=== PATIENT | female | born 1940 | race Caucasian/White ===

== ENCOUNTER 2020-08-28 09:17 | Outpatient (REF) | payer MEDICARE, SELFPAY ==
[2020-08-28 11:13] LABS: Estimated Average Glucose 117 mg/dL; Hemoglobin A1c % 5.7 %
[2020-08-28 11:54] LABS: Alanine Aminotransferase 25 U/L (0-31); Albumin Level 4.5 g/dL (3.5-5.0); Alkaline Phosphatase 81 U/L (39-117); Anion Gap 13 (12-20); Aspartate Amino Transferase 30 U/L (5-31); Bilirubin Total 1.3 mg/dL (0.0-1.0); Blood Urea Nitrogen 13 mg/dL (9-16); Calcium 9.7 mg/dL (8.4-10.2); Carbon Dioxide 30 mmol/L (22-29); Chloride 101 mmol/L (96-108); Cholesterol 182 mg/dL; Estimated Glomerular Filt Rate > 60; Glucose Fasting 115 mg/dL (60-99); HDL Cholesterol 60 mg/dL; LDL Cholesterol Calculated 95 mg/dl; Sodium 139 mmol/L (135-145); Total Protein 6.8 g/dL (6.5-8.0); Triglycerides 137 mg/dL
[2020-08-28 12:18] LABS: Free T4 (Free Thyroxine) 1.07 ng/dL (0.71-1.85); Thyroid Stimulating Hormone 4.01 mIU/mL (0.32-4.0)
== END 2020-08-28 09:18 | disposition home or self-care (01) ==
LOC: HO.MANLR 09:17
PROVIDERS: PCP Internal Medicine; Visit Provider Internal Medicine
DX: R73.01 Impaired fasting glucose (principal); E78.00 Pure hypercholesterolemia, unspecified; E03.9 Hypothyroidism, unspecified; I10 Essential (primary) hypertension
CPT/HCPCS: 80053; 80061; 83036; 84439; 84443

== ENCOUNTER 2020-11-26 09:36 | Outpatient (REF) | payer MEDICARE, SELFPAY ==
[2020-11-26 11:43] LABS: Estimated Average Glucose 117 mg/dL; Hemoglobin A1c % 5.7 %
== END 2020-11-26 09:37 | disposition home or self-care (01) ==
LOC: HO.MANLR 09:36
PROVIDERS: PCP Internal Medicine; Visit Provider Internal Medicine
DX: E03.9 Hypothyroidism, unspecified (principal); I10 Essential (primary) hypertension; R73.01 Impaired fasting glucose; E78.00 Pure hypercholesterolemia, unspecified
CPT/HCPCS: 36415; 83036

== ENCOUNTER 2021-02-04 14:29 | Outpatient (REF) | payer MEDICARE, SELFPAY ==
[2021-02-04 17:56] LABS: Glucose Urine UA NEG (NEG); Leukocyte Esterase Urine NEG (NEG); Nitrite Urine NEG (NEG); PH 6.5 (5.0-8.0); Specific Gravity - Urine <= 1.005 (1.005-1.025); Urine Blood NEG (NEG); Urine Ketones NEG (NEG); Urine Protein NEG (NEG-TRACE)
[2021-02-04 18:02] LABS: Color Urine YELLOW
[2021-02-04 18:03] LABS: Appearance Urine CLEAR
[2021-02-04 18:27] LABS: Alanine Aminotransferase 19 U/L (0-31); Albumin Level 4.3 g/dL (3.5-5.0); Alkaline Phosphatase 89 U/L (39-117); Anion Gap 13 (12-20); Aspartate Amino Transferase 27 U/L (5-31); Blood Urea Nitrogen 16 mg/dL (9-16); Calcium 9.7 mg/dL (8.4-10.2); Carbon Dioxide 31 mmol/L (22-29); Chloride 103 mmol/L (96-108); Estimated Glomerular Filt Rate > 60; Glucose Random 141 mg/dL (60-115); Potassium 4.7 mmol/L (3.3-5.1); Sodium 142 mmol/L (135-145); Total Protein 6.6 g/dL (6.5-8.0)
== END 2021-02-04 14:30 | disposition home or self-care (01) ==
LOC: HO.MANLDS 14:29
PROVIDERS: PCP Internal Medicine; Visit Provider Physician Assistant
DX: R31.0 Gross hematuria (principal); R30.9 Painful micturition, unspecified
CPT/HCPCS: 36415; 80053; 81003; 87086

== ENCOUNTER 2021-03-03 08:46 | Outpatient (REF) | payer MEDICARE, SELFPAY ==
[2021-03-03 11:34] LABS: Estimated Average Glucose 114 mg/dL; Hemoglobin A1c % 5.6 %
[2021-03-03 12:02] LABS: Alanine Aminotransferase 20 U/L (0-31); Albumin Level 4.4 g/dL (3.5-5.0); Alkaline Phosphatase 83 U/L (39-117); Anion Gap 15 (12-20); Aspartate Amino Transferase 25 U/L (5-31); Bilirubin Total 1.8 mg/dL (0.0-1.0); Blood Urea Nitrogen 18 mg/dL (9-16); Calcium 9.3 mg/dL (8.4-10.2); Carbon Dioxide 26 mmol/L (22-29); Chloride 103 mmol/L (96-108); Cholesterol 176 mg/dL; Estimated Glomerular Filt Rate > 60; Glucose Fasting 111 mg/dL (60-99); HDL Cholesterol 63 mg/dL; LDL Cholesterol Calculated 86 mg/dl; Potassium 5.1 mmol/L (3.3-5.1); Sodium 139 mmol/L (135-145); Total Protein 6.7 g/dL (6.5-8.0); Triglycerides 136 mg/dL
[2021-03-03 12:08] LABS: Free T4 (Free Thyroxine) 0.88 ng/dL (0.71-1.85); Thyroid Stimulating Hormone 3.53 uIU/mL (0.32-4.0)
== END 2021-03-03 08:47 | disposition home or self-care (01) ==
LOC: HO.MANLDS 08:46
PROVIDERS: PCP Internal Medicine; Visit Provider Internal Medicine
DX: R73.01 Impaired fasting glucose (principal); E03.9 Hypothyroidism, unspecified; E78.00 Pure hypercholesterolemia, unspecified; I10 Essential (primary) hypertension
CPT/HCPCS: 36415; 80053; 80061; 83036; 84439; 84443

== ENCOUNTER 2021-06-03 11:07 | Outpatient (REF) | payer MEDICARE, SELFPAY ==
[2021-06-03 13:17] LABS: Estimated Average Glucose 117 mg/dL; Hemoglobin A1c % 5.7 %
== END 2021-06-03 11:08 | disposition home or self-care (01) ==
LOC: HO.MANLDS 11:07
PROVIDERS: PCP Internal Medicine; Visit Provider Internal Medicine
DX: R73.01 Impaired fasting glucose (principal); E03.9 Hypothyroidism, unspecified; E78.00 Pure hypercholesterolemia, unspecified; I10 Essential (primary) hypertension
CPT/HCPCS: 36415; 83036

== ENCOUNTER 2021-06-12 10:52 | Outpatient (REF) | payer MEDICARE, SELFPAY ==
--- NOTE | ~2021-06-12 | MM_ITS ---
EXAMINATION: MM SCREENING DIGITAL BREAST TOMOSYNTHESIS, BILATERAL CLINICAL INFORMATION: Screening. Asymptomatic. The lifetime risk of breast cancer based on the Tyrer-Cuzick Model is 3%. COMPARISON: Mammography: 06/06/2020, 03/17/2019, 03/10/2018 TECHNIQUE: Digital breast tomosynthesis is performed in both the craniocaudal and mediolateral oblique views along with computer-aided detection (CAD). Synthesized 2D images are generated from the tomosynthesis. FINDINGS: There are scattered areas of fibroglandular density (ACR BI-RADS breast composition Category b). There are no significant masses, abnormal calcifications, or other abnormalities. Parenchymal pattern is similar to prior studies. The skin contours are smooth. No significant changes. MM/MM tomosynthesis screening BI IMPRESSION: No mammographic evidence of malignancy. ASSESSMENT: BI-RADS 1: Negative RECOMMENDATION: Routine annual mammography screening. This patient's information was entered into a reminder system with a target due date for their next mammogram.
== END 2021-06-12 10:53 | disposition home or self-care (01) ==
LOC: HO.MAMMO 10:52
PROVIDERS: Visit Provider Internal Medicine
DX: Z12.31 Encounter for screening mammogram for malignant neoplasm of breast (principal)
CPT/HCPCS: 77063; 77067

== ENCOUNTER 2021-09-08 09:10 | Outpatient (REF) | payer MEDICARE, SELFPAY ==
[2021-09-08 11:51] LABS: Estimated Average Glucose 117 mg/dL; Hemoglobin A1c % 5.7 %
[2021-09-08 12:05] LABS: Alanine Aminotransferase 27 U/L (0-31); Albumin Level 4.2 g/dL (3.5-5.0); Alkaline Phosphatase 87 U/L (39-117); Anion Gap 12 (12-20); Aspartate Amino Transferase 22 U/L (5-31); Blood Urea Nitrogen 15 mg/dL (9-16); Calcium 9.4 mg/dL (8.4-10.2); Carbon Dioxide 28 mmol/L (22-29); Chloride 102 mmol/L (96-108); Cholesterol 179 mg/dL; Estimated Glomerular Filt Rate > 60; Glucose Fasting 100 mg/dL (60-99); HDL Cholesterol 58 mg/dL; LDL Cholesterol Calculated 103 mg/dl; Potassium 4.4 mmol/L (3.3-5.1); Sodium 138 mmol/L (135-145); Total Protein 6.6 g/dL (6.5-8.0); Triglycerides 93 mg/dL
[2021-09-08 12:18] LABS: Thyroid Stimulating Hormone 2.83 uIU/mL (0.32-4.0)
== END 2021-09-08 09:11 | disposition home or self-care (01) ==
LOC: HO.MANLDS 09:10
PROVIDERS: PCP Internal Medicine; Visit Provider Internal Medicine
DX: R73.01 Impaired fasting glucose (principal); E03.9 Hypothyroidism, unspecified; E78.00 Pure hypercholesterolemia, unspecified; I10 Essential (primary) hypertension
CPT/HCPCS: 36415; 80053; 80061; 83036; 84439; 84443

== ENCOUNTER 2021-12-01 11:37 | Outpatient (REF) | payer MEDICARE, SELFPAY ==
[2021-12-01 13:55] LABS: Estimated Average Glucose 117 mg/dL; Hemoglobin A1c % 5.7 %
== END 2021-12-01 11:38 | disposition home or self-care (01) ==
LOC: HO.MANLDS 11:37
PROVIDERS: PCP Internal Medicine; Visit Provider Internal Medicine
DX: R73.01 Impaired fasting glucose (principal); E03.9 Hypothyroidism, unspecified; E78.00 Pure hypercholesterolemia, unspecified; I10 Essential (primary) hypertension
CPT/HCPCS: 36415; 83036

== ENCOUNTER 2022-01-09 13:36 | Outpatient (REF) | payer MEDICARE, SELFPAY | END 2022-01-09 13:37 | disposition home or self-care (01) | LOC: HO.MANLDS 13:36 | PROVIDERS: PCP Physician Assistant; Visit Provider Physician Assistant | DX: R30.9 Painful micturition, unspecified (principal) | CPT/HCPCS: 87086 ==

== ENCOUNTER 2022-01-23 14:52 | Outpatient (REF) | payer MEDICARE, SELFPAY | END 2022-01-23 14:53 | disposition home or self-care (01) | LOC: HO.LAB 14:52 | PROVIDERS: PCP Internal Medicine | DX: R31.9 Hematuria, unspecified (principal); N39.0 Urinary tract infection, site not specified | CPT/HCPCS: 87086; 99202 ==

== ENCOUNTER 2022-01-26 11:59 | Outpatient (REF) | payer MEDICARE, SELFPAY ==
[2022-01-27 10:14] LABS: Urine Cytology See Pathology rpt
== END 2022-01-26 12:00 | disposition home or self-care (01) ==
LOC: HO.LAB 11:59
DX: R31.9 Hematuria, unspecified (principal)
CPT/HCPCS: 88112

== ENCOUNTER 2022-03-11 09:23 | Outpatient (REF) | payer MEDICARE, SELFPAY ==
[2022-03-11 11:52] LABS: Alanine Aminotransferase 38 U/L (0-31); Albumin Level 4.3 g/dL (3.5-5.0); Alkaline Phosphatase 78 U/L (39-117); Anion Gap 13 (12-20); Aspartate Amino Transferase 44 U/L (5-31); Bilirubin Total 0.9 mg/dL (0.0-1.0); Blood Urea Nitrogen 11 mg/dL (9-16); Calcium 9.9 mg/dL (8.4-10.2); Carbon Dioxide 29 mmol/L (22-29); Chloride 103 mmol/L (96-108); Cholesterol 171 mg/dL; Estimated Glomerular Filt Rate > 60; Glucose Fasting 106 mg/dL (60-99); HDL Cholesterol 61 mg/dL; LDL Cholesterol Calculated 94 mg/dl; Potassium 4.6 mmol/L (3.3-5.1); Sodium 140 mmol/L (135-145); Total Protein 6.7 g/dL (6.5-8.0); Triglycerides 82 mg/dL
[2022-03-11 11:54] LABS: Estimated Average Glucose 117 mg/dL; Hemoglobin A1c % 5.7 %
[2022-03-11 12:14] LABS: Free T4 (Free Thyroxine) 1.07 ng/dL (0.71-1.85); Thyroid Stimulating Hormone 1.92 uIU/mL (0.32-4.0)
== END 2022-03-11 09:24 | disposition home or self-care (01) ==
LOC: HO.MANLDS 09:23
PROVIDERS: PCP Internal Medicine; Visit Provider Internal Medicine
DX: E78.2 Mixed hyperlipidemia (principal); R73.01 Impaired fasting glucose
CPT/HCPCS: 36415; 80053; 80061; 83036; 84439; 84443

== ENCOUNTER 2022-06-23 09:51 | Outpatient (REF) | payer MEDICARE, SELFPAY ==
--- NOTE | ~2022-06-23 | MM_ITS ---
EXAMINATION: MM SCREENING DIGITAL BREAST TOMOSYNTHESIS, BILATERAL CLINICAL INFORMATION: Screening. Asymptomatic. The lifetime risk of breast cancer based on the Tyrer-Cuzick Model is 5%. COMPARISON: Mammography: 06/12/2021, 06/06/2020, 03/17/2019 TECHNIQUE: Digital breast tomosynthesis is performed in both the craniocaudal and mediolateral oblique views along with computer-aided detection (CAD). Synthesized 2D images are generated from the tomosynthesis. FINDINGS: There are scattered areas of fibroglandular density (ACR BI-RADS breast composition Category b). There are no significant masses, abnormal calcifications, or other abnormalities. No developing density or architectural abnormality or significant changes. MM/MM tomosynthesis screening BI IMPRESSION: No mammographic evidence of malignancy. ASSESSMENT: BI-RADS 1: Negative RECOMMENDATION: Routine annual mammography screening. This patient's information was entered into a reminder system with a target due date for their next mammogram.
== END 2022-06-23 09:52 | disposition home or self-care (01) ==
LOC: HO.MAMMO 09:51
PROVIDERS: PCP Internal Medicine; Visit Provider Internal Medicine
DX: Z12.31 Encounter for screening mammogram for malignant neoplasm of breast (principal)
CPT/HCPCS: 77063; 77067

== ENCOUNTER 2022-08-25 08:08 | Outpatient (REF) | payer MEDICARE, SELFPAY ==
[2022-08-25 12:08] LABS: Estimated Average Glucose 120 mg/dL; Hemoglobin A1c % 5.8 %
[2022-08-25 12:32] LABS: Alanine Aminotransferase 22 U/L (0-31); Albumin Level 4.3 g/dL (3.5-5.0); Alkaline Phosphatase 78 U/L (39-117); Anion Gap 16 (12-20); Aspartate Amino Transferase 26 U/L (5-31); Bilirubin Total 1.6 mg/dL (0.0-1.0); Blood Urea Nitrogen 14 mg/dL (9-16); Calcium 9.5 mg/dL (8.4-10.2); Carbon Dioxide 27 mmol/L (22-29); Chloride 105 mmol/L (96-108); Cholesterol 184 mg/dL; Estimated Glomerular Filt Rate > 60; Glucose Random 111 mg/dL (60-115); HDL Cholesterol 61 mg/dL; LDL Cholesterol Calculated 92 mg/dl; Sodium 143 mmol/L (135-145); Total Protein 6.5 g/dL (6.5-8.0); Triglycerides 156 mg/dL
[2022-08-25 12:55] LABS: Thyroid Stimulating Hormone 3.48 uIU/mL (0.32-4.0)
== END 2022-08-25 08:09 | disposition home or self-care (01) ==
LOC: HO.MANLDS 08:08
PROVIDERS: Visit Provider Physician Assistant
DX: E78.2 Mixed hyperlipidemia (principal); R73.01 Impaired fasting glucose; E03.9 Hypothyroidism, unspecified
CPT/HCPCS: 36415; 80053; 80061; 83036; 84443

== ENCOUNTER 2022-12-18 07:51 | Outpatient (REF) | payer MEDICARE, SELFPAY ==
[2022-12-18 10:09] LABS: MANUAL DIFF FLAG NO
[2022-12-18 10:14] LABS: Basophils Percent Auto 0.7 % (0-2); Eosinophils Absolute Auto 0.1 X10*3/uL (0.0-0.4); Eosinophils Percent Auto 2.4 % (0-4); Hematocrit 40.9 % (37.0-47.0); Hemoglobin 13.7 g/dl (12.0-16.0); Imm Gran Abs Auto 0.01 X10*3/uL (0.00-0.03); Imm Gran Pct Auto 0.2 % (0.0-0.4); Lymphocytes Absolute Auto 1.3 X10*3/uL (1.2-4.9); Lymphocytes Percent Auto 32.7 % (20-40); Mean Corpuscular HGB Conc 33.5 g/dl (31.0-35.0); Mean Corpuscular Hemoglobin 31.1 pg (27.0-33.0); Mean Corpuscular Volume 92.7 fL (80.0-98.0); Mean Platelet Volume 10.4 fL (9.4-12.3); Monocytes Absolute Auto 0.6 X10*3/uL (0.1-1.2); Monocytes Percent Auto 13.4 % (2-11); Neutrophils Absolute Auto 2.1 x10*3/uL (2.0-8.3); Neutrophils Percent Auto 50.6 % (45-73); Platelet Count 201 X10*3/uL (160-400); Red Blood Count 4.41 X10*6/uL (4.20-5.50); Red Cell Distribution Width 11.9 % (11.0-16.0); White Blood Count 4.1 X10*3/uL (4.8-10.8)
[2022-12-18 10:37] LABS: Alanine Aminotransferase 19 U/L (0-31); Albumin Level 4.1 g/dL (3.5-5.0); Alkaline Phosphatase 85 U/L (39-117); Anion Gap 13 (12-20); Aspartate Amino Transferase 23 U/L (5-31); Bilirubin Total 1.5 mg/dL (0.0-1.0); Blood Urea Nitrogen 13 mg/dL (9-16); Calcium 9.6 mg/dL (8.4-10.2); Carbon Dioxide 28 mmol/L (22-29); Chloride 103 mmol/L (96-108); Cholesterol 169 mg/dL; Estimated Glomerular Filt Rate > 60; Glucose Random 115 mg/dL (60-115); HDL Cholesterol 50 mg/dL; LDL Cholesterol Calculated 98 mg/dl; Potassium 4.5 mmol/L (3.3-5.1); Sodium 139 mmol/L (135-145); Total Protein 6.3 g/dL (6.5-8.0); Triglycerides 105 mg/dL
[2022-12-18 10:53] LABS: Thyroid Stimulating Hormone 4.68 uIU/mL (0.32-4.0); Vitamin D 25-OH Total 33.6 ng/mL (>30)
[2022-12-18 10:58] LABS: Vitamin B12 707 pg/mL (200-900)
== END 2022-12-18 07:52 | disposition home or self-care (01) ==
LOC: HO.ACSHOME 07:51
PROVIDERS: Visit Provider Internal Medicine
DX: Z00.00 Encounter for general adult medical examination without abnormal findings (principal); Z13.6 Encounter for screening for cardiovascular disorders
CPT/HCPCS: 36415; 80053; 80061; 82306; 82607; 84443; 85025

== ENCOUNTER 2023-03-05 08:13 | Outpatient (REF) | payer MEDICARE, SELFPAY ==
[2023-03-05 12:17] LABS: Alanine Aminotransferase 22 U/L (0-31); Albumin Level 4.1 g/dL (3.5-5.0); Alkaline Phosphatase 72 U/L (39-117); Anion Gap 13 (12-20); Aspartate Amino Transferase 29 U/L (5-31); Bilirubin Total 1.8 mg/dL (0.0-1.0); Blood Urea Nitrogen 14 mg/dL (9-16); Calcium 9.3 mg/dL (8.4-10.2); Carbon Dioxide 28 mmol/L (22-29); Chloride 107 mmol/L (96-108); Cholesterol 169 mg/dL; Estimated Glomerular Filt Rate > 60; Glucose Random 113 mg/dL (60-115); HDL Cholesterol 63 mg/dL; LDL Cholesterol Calculated 84 mg/dl; Potassium 4.5 mmol/L (3.3-5.1); Sodium 143 mmol/L (135-145); Total Protein 6.1 g/dL (6.5-8.0); Triglycerides 112 mg/dL
[2023-03-05 12:33] LABS: Estimated Average Glucose 120 mg/dL; Hemoglobin A1c % 5.8 %
== END 2023-03-05 08:14 | disposition home or self-care (01) ==
LOC: HO.MANLDS 08:13
PROVIDERS: Visit Provider Physician Assistant
DX: E78.2 Mixed hyperlipidemia (principal); R73.01 Impaired fasting glucose
CPT/HCPCS: 36415; 80053; 80061; 83036

== ENCOUNTER 2023-07-01 09:46 | Outpatient (REF) | payer MEDICARE, SELFPAY | END 2023-07-01 09:47 | disposition home or self-care (01) | LOC: HO.MAMMO 09:46 | PROVIDERS: PCP Internal Medicine; Visit Provider Internal Medicine | DX: Z12.31 Encounter for screening mammogram for malignant neoplasm of breast (principal) | CPT/HCPCS: 77063; 77067 ==

== ENCOUNTER → 2023-07-01 10:00 | Outpatient (BNV) | payer MEDICARE, SELFPAY | PROVIDERS: PCP Internal Medicine; Visit Provider Radiology Diagnostic Radiology | DX: Z12.31 Encounter for screening mammogram for malignant neoplasm of breast (principal) | CPT/HCPCS: 77063; 77067 ==

== ENCOUNTER 2023-08-06 08:41 | Outpatient (REF) | payer MEDICARE, SELFPAY ==
[2023-08-06 13:32] LABS: MANUAL DIFF FLAG NO
[2023-08-06 13:50] LABS: Basophils Percent Auto 0.5 % (0-2); Eosinophils Absolute Auto 0.1 X10*3/uL (0.0-0.4); Eosinophils Percent Auto 2.1 % (0-4); Hematocrit 42.4 % (37.0-47.0); Hemoglobin 13.8 g/dl (12.0-16.0); Imm Gran Abs Auto 0.01 X10*3/uL (0.00-0.03); Imm Gran Pct Auto 0.2 % (0.0-0.4); Lymphocytes Absolute Auto 1.3 X10*3/uL (1.2-4.9); Lymphocytes Percent Auto 29.4 % (20-40); Mean Corpuscular HGB Conc 32.5 g/dl (31.0-35.0); Mean Corpuscular Hemoglobin 31.2 pg (27.0-33.0); Mean Corpuscular Volume 95.7 fL (80.0-98.0); Monocytes Absolute Auto 0.6 X10*3/uL (0.1-1.2); Monocytes Percent Auto 13.3 % (2-11); Neutrophils Absolute Auto 2.4 x10*3/uL (2.0-8.3); Neutrophils Percent Auto 54.5 % (45-73); Platelet Count 198 X10*3/uL (160-400); Red Blood Count 4.43 X10*6/uL (4.20-5.50); Red Cell Distribution Width 12.4 % (11.0-16.0); White Blood Count 4.4 X10*3/uL (4.8-10.8)
[2023-08-06 14:43] LABS: Free T4 (Free Thyroxine) 1.02 ng/dL (0.71-1.85); Thyroid Stimulating Hormone 3.57 uIU/mL (0.32-4.0)
[2023-08-06 14:44] LABS: Anion Gap 12 (12-20)
[2023-08-06 14:48] LABS: Alanine Aminotransferase 20 U/L (0-31); Albumin Level 4.2 g/dL (3.5-5.0); Alkaline Phosphatase 78 U/L (39-117); Aspartate Amino Transferase 26 U/L (5-31); Bilirubin Total 1.1 mg/dL (0.0-1.0); Blood Urea Nitrogen 10 mg/dL (9-16); Calcium 9.6 mg/dL (8.4-10.2); Carbon Dioxide 29 mmol/L (22-29); Chloride 105 mmol/L (96-108); Cholesterol 191 mg/dL (<200); Estimated Glomerular Filt Rate > 60; Glucose Random 104 mg/dL (60-115); HDL Cholesterol 66 mg/dL (>40); LDL Cholesterol Calculated 97 mg/dL (<100); Potassium 4.6 mmol/L (3.3-5.1); Sodium 141 mmol/L (135-145); Total Protein 6.7 g/dL (6.5-8.0); Triglycerides 144 mg/dL (<150)
[2023-08-06 15:03] LABS: Estimated Average Glucose 111 mg/dL; Hemoglobin A1c % 5.5 % (<6.0)
== END 2023-08-06 08:42 | disposition home or self-care (01) ==
LOC: HO.MANLDS 08:41
PROVIDERS: Visit Provider Internal Medicine
DX: I10 Essential (primary) hypertension (principal); E78.00 Pure hypercholesterolemia, unspecified; E03.9 Hypothyroidism, unspecified; R73.01 Impaired fasting glucose
CPT/HCPCS: 36415; 80053; 80061; 83036; 84439; 84443; 85025

== ENCOUNTER 2024-02-09 08:41 | Outpatient (REF) | payer MEDICARE, SELFPAY ==
[2024-02-09 12:58] LABS: MANUAL DIFF FLAG NO
[2024-02-09 13:07] LABS: Basophils Percent Auto 0.6 % (0-2); Eosinophils Absolute Auto 0.3 X10*3/uL (0.0-0.4); Eosinophils Percent Auto 5.7 % (0-4); Hematocrit 42.5 % (37.0-47.0); Hemoglobin 13.9 g/dl (12.0-16.0); Imm Gran Abs Auto 0.01 X10*3/uL (0.00-0.03); Imm Gran Pct Auto 0.2 % (0.0-0.4); Lymphocytes Absolute Auto 1.4 X10*3/uL (1.2-4.9); Lymphocytes Percent Auto 26.6 % (20-40); Mean Corpuscular HGB Conc 32.7 g/dl (31.0-35.0); Mean Corpuscular Hemoglobin 31.2 pg (27.0-33.0); Mean Corpuscular Volume 95.3 fL (80.0-98.0); Mean Platelet Volume 10.4 fL (9.4-12.3); Monocytes Absolute Auto 0.8 X10*3/uL (0.1-1.2); Monocytes Percent Auto 14.6 % (2-11); Neutrophils Absolute Auto 2.8 x10*3/uL (2.0-8.3); Neutrophils Percent Auto 52.3 % (45-73); Platelet Count 232 X10*3/uL (160-400); Red Blood Count 4.46 X10*6/uL (4.20-5.50); Red Cell Distribution Width 12.3 % (11.0-16.0); White Blood Count 5.3 X10*3/uL (4.8-10.8)
[2024-02-09 13:14] LABS: Estimated Average Glucose 117 mg/dL; Hemoglobin A1c % 5.7 % (<6.0)
[2024-02-09 13:46] LABS: Alanine Aminotransferase 19 U/L (0-31); Albumin Level 4.2 g/dL (3.5-5.0); Alkaline Phosphatase 81 U/L (39-117); Anion Gap 12 (12-20); Aspartate Amino Transferase 27 U/L (5-31); Blood Urea Nitrogen 13 mg/dL (9-16); Calcium 9.8 mg/dL (8.4-10.2); Carbon Dioxide 29 mmol/L (22-29); Chloride 104 mmol/L (96-108); Cholesterol 180 mg/dL (<200); Estimated Glomerular Filt Rate > 60; Glucose Random 108 mg/dL (60-115); HDL Cholesterol 68 mg/dL (>40); LDL Cholesterol Calculated 89 mg/dL (<100); Potassium 4.9 mmol/L (3.3-5.1); Sodium 140 mmol/L (135-145); Triglycerides 118 mg/dL (<150)
[2024-02-09 14:03] LABS: Free T4 (Free Thyroxine) 0.92 ng/dL (0.71-1.85); Thyroid Stimulating Hormone 4.87 uIU/mL (0.32-4.0)
== END 2024-02-09 08:42 | disposition home or self-care (01) ==
LOC: HO.MANLDS 08:41
PROVIDERS: Visit Provider Internal Medicine
DX: I10 Essential (primary) hypertension (principal); E78.00 Pure hypercholesterolemia, unspecified; E03.9 Hypothyroidism, unspecified; R73.01 Impaired fasting glucose
CPT/HCPCS: 36415; 80053; 80061; 83036; 84439; 84443; 85025

== ENCOUNTER 2024-07-06 09:44 | Outpatient (REF) | payer MEDICARE, SELFPAY ==
--- NOTE | ~2024-07-06 | MM_ITS ---
EXAMINATION: MM SCREENING DIGITAL BREAST TOMOSYNTHESIS, BILATERAL CLINICAL INFORMATION: Screening. Asymptomatic. COMPARISON: Mammography: This study is compared with prior exams dating back to 2019. TECHNIQUE: Digital breast tomosynthesis is performed in both the craniocaudal and mediolateral oblique views along with computer-aided detection (CAD). Synthesized 2D images are generated from the tomosynthesis. FINDINGS: There are scattered areas of fibroglandular density (ACR BI-RADS breast composition Category b). There are no significant masses, abnormal calcifications, or other abnormalities. MM/MM tomosynthesis screening BI IMPRESSION: No mammographic evidence of malignancy. ASSESSMENT: BI-RADS BI-RADS 1 - Negative RECOMMENDATION: Routine annual mammography screening. 1 year F/U This examination should not preclude the clinical evaluation of a suspicious palpable abnormality. This patient's information was entered into a reminder system with a target due date for their next mammogram. Electronically signed by: Luciana Pittman MD 08/05/2024 02:41 PM EDT
== END 2024-07-06 09:45 | disposition home or self-care (01) ==
LOC: HO.MAMMO 09:44
PROVIDERS: PCP Internal Medicine; Visit Provider Internal Medicine
DX: Z12.31 Encounter for screening mammogram for malignant neoplasm of breast (principal)
CPT/HCPCS: 77063; 77067

== ENCOUNTER → 2024-07-06 10:00 | Outpatient (BNV) | payer MEDICARE, SELFPAY | PROVIDERS: PCP Internal Medicine; Visit Provider Radiology Diagnostic Radiology | DX: Z12.31 Encounter for screening mammogram for malignant neoplasm of breast (principal) | CPT/HCPCS: 77063; 77067 ==

== ENCOUNTER 2024-08-14 08:56 | Outpatient (REF) | payer MEDICARE, SELFPAY ==
[2024-08-14 13:59] LABS: Estimated Average Glucose 117 mg/dL; Hemoglobin A1c % 5.7 % (<6.0)
[2024-08-14 14:23] LABS: Alanine Aminotransferase 20 U/L (0-31); Albumin Level 4.3 g/dL (3.5-5.0); Alkaline Phosphatase 81 U/L (39-117); Anion Gap 11 (12-20); Aspartate Amino Transferase 25 U/L (5-31); Bilirubin Total 1.3 mg/dL (0.0-1.0); Blood Urea Nitrogen 10 mg/dL (9-16); Calcium 9.7 mg/dL (8.4-10.2); Carbon Dioxide 29 mmol/L (22-29); Chloride 106 mmol/L (96-108); Cholesterol 180 mg/dL (<200); Estimated Glomerular Filt Rate > 60; Glucose Random 100 mg/dL (60-115); HDL Cholesterol 61 mg/dL (>40); LDL Cholesterol Calculated 95 mg/dL (<100); Potassium 4.9 mmol/L (3.3-5.1); Sodium 141 mmol/L (135-145); Total Protein 6.8 g/dL (6.5-8.0); Triglycerides 124 mg/dL (<150)
[2024-08-18 00:53] LABS: VITAMIN D (1,25 OH) D3 67 pg/mL; Vit D (1,25-Dihydroxy) Total 67 pg/mL (18-72); Vitamin D (1,25 OH) D2 <8 pg/mL
== END 2024-08-14 08:57 | disposition home or self-care (01) ==
LOC: HO.MANLDS 08:56
PROVIDERS: Visit Provider Internal Medicine
DX: I10 Essential (primary) hypertension (principal); Z13.1 Encounter for screening for diabetes mellitus
CPT/HCPCS: 36415; 80053; 80061; 82652; 83036; 84443

== ENCOUNTER 2024-09-13 10:39 | Outpatient (REF) | payer MEDICARE, SELFPAY ==
--- NOTE | ~2024-09-13 | MM_ITS ---
EXAMINATION: BONE DENSITOMETRY CLINICAL INDICATION: Other specified disorders of bone density and structure. COMPARISON: Previous BD dated 03/10/2018 and baseline BD dated 09/20/2008. TECHNIQUE: Using a [employer] DXA System (software version: 13.1) manufactured by [employer], dual-energy x-ray absorptiometry was performed of the lumbar spine and left hip. The images are of good technical quality. Summary results are attached. FINDINGS: LEFT FEMUR, NECK: Current: BMD 0.817 g/cm2, Z-score 0.3, T-score -1.6, osteopenia. Prior: BMD 0.802 g/cm2. Baseline: BMD 0.795 g/cm2. LEFT FEMUR, TOTAL: Current: BMD 0.865 g/cm2, Z-score 0.6, T-score -1.1, osteopenia, 0.5% decrease from previous, 0.2% increase from baseline (<5% change is not significant). Prior: BMD 0.869 g/cm2. Baseline: BMD 0.863 g/cm2. AP SPINE L1-L4: Current: BMD 1.031 g/cm2, Z-score 0.1, T-score -1.2, osteopenia, 1.2% increase from previous, 10.0% increase from baseline (<5% change is not significant). Prior: BMD 1.043 g/cm2. Baseline: BMD 0.937 g/cm2. IDENTIFIED RISK FACTORS: Height loss, history of fracture (adult), menopause. HISTORY OF FRACTURE: Ankle fracture MEDICATIONS: Multivitamin. MM/XR DEXA axial skeleton IMPRESSION: 1. DIAGNOSIS: Osteopenia based on the lowest T-score value of -1.6 in the femoral neck applying World Health Organization criteria. 2. 10-YEAR FRACTURE RISK PREDICTION, FRAX: Major osteoporotic fracture (clinical spine, forearm, hip or shoulder) 19.4%. Hip fracture 4.6%. 3. Treatment Recommendations: NOF guidelines recommend consideration for treatment in postmenopausal women and men age 50 and older presenting with the following: -A hip or vertebral (clinical or morphometric) fracture. -T-score less than or equal to -2.5 at the femoral neck or spine after appropriate evaluation to exclude secondary causes. -Low bone mass at the hip or spine and a 10-year fracture probability by FRAX of greater than or equal to 3% for hip fracture or greater than or equal to 20% for major osteoporotic fracture based on the [place] adapted WHO algorithm. 4. Other Recommendations: All treatment decisions require clinical judgment and consideration of individual patient factors, including patient preferences, comorbidities, previous drug use, risk factors not captured in the FRAX model (e.g. frailty, falls, vitamin D deficiency, increased bone turnover, interval significant decline in bone density) and possible under or overestimation of fracture risk by FRAX. Additional medical evaluation for secondary cause of low bone mineral density may be appropriate. FUTURE SCAN RECOMMENDATION: People with diagnosed cases of osteoporosis or at high risk for fracture should have regular bone mineral density tests. For patients eligible for Medicare, routine testing is allowed once every 2 years. The testing frequency can be increased to one year for patients who have rapidly progressing disease, those who are receiving or discontinuing medical therapy to restore bone mass, or have additional risk factors. Electronically signed by: Kiana Salinas MD 09/14/2024 12:35 PM EDT
== END 2024-09-13 10:40 | disposition home or self-care (01) ==
LOC: HO.MAMMO 10:39
PROVIDERS: PCP Internal Medicine; Visit Provider Internal Medicine
DX: M85.89 Other specified disorders of bone density and structure, multiple sites (principal)
CPT/HCPCS: 77080

== ENCOUNTER 2025-02-27 08:32 | Outpatient (REF) | payer MEDICARE, SELFPAY ==
--- OUTSIDE RECORDS SUMMARY | 2025-02-27 08:53 | XMS_ITS | Data Portability ---
Author Organization [facility] Home Service Address [address] [place] [address] Assessment Encounter Date Assessment Date Assessment LastModified by Organization Details LastModified Time 11/24/2023 11/24/2023 [address] [place] [address] ([employer]) [facility] MODERATE MUST MEET 2 OUT OF 3 ELEMENTS: PROBLEMS, DATA OR RISK ELEMENT 1: PROBLEMS ADDRESSED 1 OR MORE CHRONIC ILLNESS WITH EXACERBATION OR 2 OR MORE STABLE CHRONIC ILLNESSES OR 1 UNDIAGNOSED NEW PROBLEM OR 1 ACUTE ILLNESS W/SYMPTOMS OR 1 ACUTE COMPLICATED INJURY ELEMENT 2: DATA MUST MEET 1 OF 3 CATEGORIES CATEGORY 1: REVIEW OF PRIOR EXTERNAL NOTES, REVIEW OF RESULTS, ORDERING OF EACH TEST, ASSESSMENT REQUIRING INDEPENDENT HISTORIAN OR CATEGORY 2: INDEPENDENT INTERPRETATION OF TESTS BY ANOTHER PHYSICIAN OR SPECIALIST OR CATEGORY 3: DISCUSSION OF MGT OR TEST INTERPRETATION W/EXTERNAL PHYSICIAN OR SPECIALIST ELEMENT 3: RISK RISK OF COMPLICATIONS AND/OR MORBIDITY OR MORTALITY OF PATIENT MANAGEMENT PROVIDER MUST THOROUGHLY DOCUMENT EACH ELEMENT THAT IS COVERED Not available 11/24/2023 10:43:14 02/15/2024 02/15/2024 [id number] [place] [id number] ([employer]) [facility] MODERATE MUST MEET 2 OUT OF 3 ELEMENTS: PROBLEMS, DATA OR RISK ELEMENT 1: PROBLEMS ADDRESSED 1 OR MORE CHRONIC ILLNESS WITH EXACERBATION OR 2 OR MORE STABLE CHRONIC ILLNESSES OR 1 UNDIAGNOSED NEW PROBLEM OR 1 ACUTE ILLNESS W/SYMPTOMS OR 1 ACUTE COMPLICATED INJURY ELEMENT 2: DATA MUST MEET 1 OF 3 CATEGORIES CATEGORY 1: REVIEW OF PRIOR EXTERNAL NOTES, REVIEW OF RESULTS, ORDERING OF EACH TEST, ASSESSMENT REQUIRING INDEPENDENT HISTORIAN OR CATEGORY 2: INDEPENDENT INTERPRETATION OF TESTS BY ANOTHER PHYSICIAN OR SPECIALIST OR CATEGORY 3: DISCUSSION OF MGT OR TEST INTERPRETATION W/EXTERNAL PHYSICIAN OR SPECIALIST ELEMENT 3: RISK RISK OF COMPLICATIONS AND/OR MORBIDITY OR MORTALITY OF PATIENT MANAGEMENT PROVIDER MUST THOROUGHLY DOCUMENT EACH ELEMENT THAT IS COVERED Not available 02/15/2024 13:47:58 08/16/2024 08/16/2024 [id number] [place] [id number] ([employer]) [facility] MODERATE MUST MEET 2 OUT OF 3 ELEMENTS: PROBLEMS, DATA OR RISK ELEMENT 1: PROBLEMS ADDRESSED 1 OR MORE CHRONIC ILLNESS WITH EXACERBATION OR 2 OR MORE STABLE CHRONIC ILLNESSES OR 1 UNDIAGNOSED NEW PROBLEM OR 1 ACUTE ILLNESS W/SYMPTOMS OR 1 ACUTE COMPLICATED INJURY ELEMENT 2: DATA MUST MEET 1 OF 3 CATEGORIES CATEGORY 1: REVIEW OF PRIOR EXTERNAL NOTES, REVIEW OF RESULTS, ORDERING OF EACH TEST, ASSESSMENT REQUIRING INDEPENDENT HISTORIAN OR CATEGORY 2: INDEPENDENT INTERPRETATION OF TESTS BY ANOTHER PHYSICIAN OR SPECIALIST OR CATEGORY 3: DISCUSSION OF MGT OR TEST INTERPRETATION W/EXTERNAL PHYSICIAN OR SPECIALIST ELEMENT 3: RISK RISK OF COMPLICATIONS AND/OR MORBIDITY OR MORTALITY OF PATIENT MANAGEMENT PROVIDER MUST THOROUGHLY DOCUMENT EACH ELEMENT THAT IS COVERED Not available 08/16/2024 14:08:09 11/17/2024 11/17/2024 Patient agreed and verbally consents to this audio and video Telehealth appt via a secure platform [email or web address] Not available 11/17/2024 09:46:01 01/09/2025 01/09/2025 Patient agreed and verbally consents to this audio and video Telehealth appt via a secure platform [email or web address] Not available 01/09/2025 14:25:17 Plan of Treatment Reminders Order Date Submit Date Provider Last Modified By Organization Details Last Modified Time Details Appointments MEDICARE ANNUAL WELLNESS 2024 10:00A M DR COLEMAN Not available Not available Not available Lab CMP, serum or plasma 2023 024 [facility], [address] [place] [address], [place], [address], 02/15/2024 13:50:42 CBC 2023 024 [facility], [address] [place] [address], [facility], [place], [address], 02/15/2024 13:50:42 vitamin D, 25-hydrox y, total, serum 2023 024 [facility], [address] [place] [address], [address], [place], [address], 02/15/2024 13:50:42 lipid panel, serum 2023 024 [facility], [address] [place] [address], [address], [place], [address], 02/15/2024 13:50:42 TSH + free T4, serum 2023 024 [facility], [address] [place] [address], [address], [place], [address], 02/15/2024 13:51:51 Referral None recorded. Procedures None recorded. Surgeries None recorded. Imaging bone density 2023 024 [facility], [address] [place] [address] [place], [address], 08/22/2024 16:00:09 Medication Orders azithromy jay 250 mg tablet 2024 025 [facility][id number], [address], [place], [id number], 01/09/2025 14:28:19 Medrol (Kojo) 4 mg tablets in a dose pack 2024 025 [facility] #12248, [address], [place], [id number], 01/09/2025 14:28:16 prednison e 10 mg tablet 2023 025 [facility] #21919, [address], [place], [id number], 01/09/2025 09:35:49 amoxicill in 875 mg tablet 2023 025 [facility] #99620, [address], [place], [id number], 01/09/2025 09:35:42 butalbita l-acetami nophen-ca ffeine 50 mg-325 mg-40 mg tablet 2023 024 [email or web address] #73719, [address], [place], [id number], 08/16/2024 14:48:01 butalbita l-acetami nophen-ca ffeine 50 mg-325 mg-40 mg tablet 2023 024 [facility] #31981, [address], [place], [id number], 02/15/2024 13:53:13 Synthroid [address] [facility], [facility], [place], [address], 02/15/2024 13:51:30 escitalop ann 5 mg tablet 2023 024 [facility] #90388, [address], [place], [id number], 11/24/2023 11:08:21 Patient TargetsNo targets recorded. Patient Instructions Encounter Date Encounter Id Patient Instructions Last Modified By Organization Details Last Modified Time 08/16/2024 [id number] headache: care instructions [email or web address] Not available 08/16/2024 14:15:55 high blood pressure: care instructions Not available 08/16/2024 14:15:55 learning about high blood pressure Not available 08/16/2024 14:15:55 Reason for Referral None Reported. Results Created Date Observation Date Name Description Value Unit Range Abnormal Flag Note LastModifiedBy Organization Detail LastModifiedTime 08/05/2007/06/2024 MAMMO , scree yanna, digit al, bilat eral No observ ation record ed. [facility] [address] [place], [address], 08/16/2024 14:04:54 09/14/20 24 09/13/2024 bone densi ty No observ ation record ed. [facility] [address] [place], [place], [address], 09/15/2024 10:53:01 12/06/19 25 12/06/2024 XR, chest , 2 view No observ ation record ed. [email or web address] [address], [address], 01/09/2025 14:18:28 Result Notes None recorded. Problems Name Problem SNOMED Code Status Onset Date Resolution Date Notes Provider Name and Address Organization Details Recorded Time Osteoart hritis of knee 512869270 Active 2018 Not Available [facility] 3 11:37:44 Hypothyr oidism 38027719 Active 2017 Not Available [facility] 3 11:37:44 Hypercho lesterol emia 24828911 Active 2017 Not Available [facility] 3 11:37:44 Impaired fasting glycemia 513364203 Active 2017 Not Available [facility] 3 11:37:44 Osteopen ia 065730761 Active 2017 Not Available [facility] 3 11:37:44 Degenera tion of cervical interver tebral disc 19829828 Active 2019 Not Available [facility] 3 11:37:44 [facility] hyperten ness 72286179 Active 2017 Not Available [facility] 3 11:37:44 Carotid artery stenosis 39528060 Active 2017 Left Carotid US 2016 56-60% Not Available [facility] 3 11:37:44 Syncope 771626191 Active 2017 [facility] Admission syncope 03/2014 Not Available [facility] 3 11:37:44 Lyme disease 65775455 Active 2017 Treatment 2013 Not Available [facility] 3 11:37:44 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 Active 2020 Not Available [facility] 3 11:37:44 Pain of bilatera l knee joints 48920443905 4104 Active 2021 Not Available [facility] 3 11:37:44 Hyperlip idemia 62624316 Active 2021 Not Available [facility] 3 11:37:44 Pain of right knee joint 81510537218 4100 Active 2021 Not Available [facility] 3 11:37:44 Carcinom a of urinary bladder 112628087 Active 2021 Not Available [facility] 3 11:37:44 Bilatera l osteoart hritis of knees 39627919957 9107 Active 2021 Not Available [facility] 3 11:37:44 Anxiety 39885908 Active 2022 Not Available [facility] 3 11:37:44 Cough 78489250 Active 2022 Not Available [facility] 3 11:37:44 Headache 40018444 Active 2022 Not Available [facility] 3 11:37:44 Low back pain 940294815 Active 2022 Usama Coleman, DO [address] [place], [address], [facility] 3 15:52:12 Hypothyr oidism 30830051 Active 2017 Not Available [facility] 3 11:37:44 Hypercho lesterol emia 26050981 Active 2017 Not Available [facility] 3 11:37:44 Impaired fasting glycemia 654001796 Active 2017 Not Available [facility] 3 11:37:44 Essentia l hyperten ness 08191970 Active 2017 Not Available [facility] 3 11:37:44 Osteopen ia 845380654 Active 2017 Not Available [facility] 3 11:37:44 Carotid artery stenosis 17182090 Active 2017 56-60% Not Available [facility] 3 11:37:44 Lyme disease 37740860 Active 2017 Not Available [facility] 3 11:37:44 Syncope 882539721 Active 2017 2014 Not Available [facility] 3 11:37:44 Sore throat 225481619 Active 2023 GENEVA GREY [address] [place] [address], [address], [facility] 4 09:46:17 Pneumoni a 526081098 Active 2024 GENEVA GREY [address] [place] [address], [phone], [facility] 5 12:33:01 Acute bronchit is 89977760 Active 2024 GENEVA GREY [address] [place] [address], [address], [facility] 5 14:22:00 Problem Notes None recorded. Procedures Surgical History Date Name Laterality Status Provider Name and Address Organization Details Recorded Time Appendectomy completed Callie farrell NP, S [address] [place] [address], [address], [facility] 10/31/2018 09:25:28 Cataract Surgery completed Callie ramirez NP, S [address] [place] [address], [address], [facility] 10/31/2018 09:25:49 Cholecystectomy completed February JANAE Gomez [address] [place] [address], [address], [facility] 11/25/2018 12:01:00 Imaging Results Imaging Date Name Status LastModified by Organiz ation Details LastModified Time 07/06/2024 MAMMO, screening, digital, bilateral completed [facility] [address] [place], [address], 08/16/2024 14:04:54 09/13/2024 bone density completed [email or web address] [facility] [address] [place], [address], 09/15/2024 10:53:01 12/06/2024 XR, chest, 2 view completed [facility] [address] [place], [address], 01/09/2025 14:18:28 Procedure Notes None recorded. Medical Equipment None Reported. Allergies Allergen ID Allergen Name Allergen Category Reaction Reaction Severity Criticality Documentation Date Start Date Code Code System Note Provider Name and Address Organization Details Recorded Time 2992 Iodinated contrast media (substanc e) medicatio n vomiting Not available Not available 03/15/2019 36462 2003 SNOMED rash, fever Mita hollis [facility] 9 14:56:27 8630 codeine medicatio n other Not available [facility] 11/17/2024 2670 RxNorm GENEVA GREY [address] [place], [address], [facility] 4 09:47:19 Medications Name Sig Start Date Stop Date Status Note LastModified by Organization Details LastModified Time celecoxib 200 mg capsule TAKE 1 CAPSULE BY MOUTH EVERY DAY 02/14 completed Not Available Not Available Not Available atorvastati n 40 mg tablet TAKE 1 TABLET DAILY 2024 active Not Available Not Available Not Avai lable prednisone 10 mg tablet 01/09 completed Not Available Not Available Not Available triamcinolo ne acetonide 0.5 % topical cream 04/28 completed Not Available Not Available Not Available azithromyci n 250 mg tablet TAKE 2 TABLETS (500 MG) BY ORAL ROUTE ONCE DAILY FOR 1 DAY THEN 1 TABLET (250 MG) BY ORAL ROUTE ONCE DAILY FOR 4 DAYS active Not Available Not Available No t Available meloxicam 15 mg tablet TAKE 1 TABLET BY MOUTH EVERY DAY active Not Available Not Available No t Available sulfamethox azole 800 mg-trimetho prim 160 mg tablet TAKE 1 TABLET BY MOUTH EVERY 12 HOURS FOR 5 DAYS 01/09 completed Not Available Not Available Not Available tramadol 50 mg tablet Take 1 tablet every 8 hours by oral route. 06/21 completed Not Available Not Available Not Available triamcinolo ne acetonide 0.1 % topical cream 07/05 completed Not Available Not Available Not Available butalbital- acetaminoph en-caffeine 50 mg-325 mg-40 mg tablet TAKE 1 TABLET BY MOUTH EVERY 6 HOURS NEEDED active Not Available Not Available No t Available oxycodone-a cetaminophe n 5 mg-325 mg tablet 02/21 completed Not Available Not Available Not Available amoxicillin 875 mg tablet Take 1 tablet every 12 hours by oral route for 10 days. 01/09 completed Not Available Not Available Not Available lorazepam 0.5 mg tablet TAKE 1 TABLET BY MOUTH EVERY 12 HOURS NEEDED 07/05 completed Not Available Not Available Not Available Synthroid 25 mcg tablet TAKE 1 TABLET DAILY 02/14 completed Not Available Not Available Not Available amitriptyli ne 10 mg tablet Take 1 tablet every day by oral route for 90 days. 04/28 completed Not Available Not Available Not Available benzonatate 100 mg capsule TAKE 1 CAPSULE BY MOUTH THREE TIMES DAILY NEEDED FOR COUGH 07/05 completed Not Available Not Available Not Available doxycycline monohydrate 100 mg capsule active Not Available Not Available Not Available cephalexin 500 mg capsule TAKE 1 CAPSULE BY MOUTH TWICE DAILY 07/05 completed Not Available Not Available Not Available erythromyci n 5 mg/gram (0.5 %) eye ointment APPLY 1 CM RIBBON INTO THE LOWER CONJUNCTI CARRIE SAC(S) IN THE AFFECTED EYE(S) BY OPHTHALMI C ROUTE 3 TIMES PER DAY 07/05 completed Not Available Not Available Not Available tobramycin 0.3 % eye drops INSTILL 1 DROP INTO THE LEFT EYE FOUR TIMES DAILY active Not Available Not Available No t Available triamcinolo ne acetonide 0.1 % topical ointment active Not Available Not Available Not Available lisinopril 10 mg tablet 1 tablet daily 10/25 completed Not Available Not Available Not Available prednisone 50 mg tablet 02/04 completed Not Available Not Available Not Available Synthroid 50 mcg tablet TAKE 1 TABLET DAILY 2024 active Not Available Not Available Not Avai lable diclofenac sodium 75 mg tablet,michelet yed release 02/21 completed Not Available Not Available Not Available lisinopril 5 mg tablet Take 1 tablet every day by oral route. 10/25 completed Not Available Not Available Not Available Baby Aspirin 81 mg chewable tablet Chew 1 tablet every day by oral route. active Not Available Not Available No t Available furosemide 20 mg tablet TAKE 1 TABLET ONCE DAILY active Not Available Not Available No t Available lorazepam 1 mg tablet TAKE 1 TABLET BY MOUTH THREE TIMES DAILY NEEDED active Not Available Not Available No t Available levofloxaci n 500 mg tablet Take 1 tablet every 24 hours by oral route for 7 days. 03/15 completed Not Available Not Available Not Available estradiol 0.01% (0.1 mg/gram) vaginal cream USE PEA SIZED AMOUNT VAGINALLY TO URETHRA DAILY FOR UTI 02/14 completed Not Available Not Available Not Available methylpredn isolone 4 mg tablets in a dose pack FOLLOW PACKAGE DIRECTION S active Not Available Not Available No t Available albuterol sulfate HFA 90 mcg/actuati on aerosol inhaler INHALE 2 PUFFS INTO THE LUNGS EVERY 6 HOURS NEEDED FOR WHEEZING 02/14 completed Not Available Not Available Not Available naproxen 500 mg tablet 02/21 completed Not Available Not Available Not Available oxycodone 5 mg tablet 11/30 completed Not Available Not Available Not Available Multiminera ls tablet Take every day by oral route. active Not Available Not Available No t Available Pneumovax-2 3 25 mcg/0.5 mL injection syringe 10/25 completed Not Available Not Available Not Available escitalopra m 5 mg tablet TAKE 1 TABLET BY MOUTH EVERY DAY 2023 active Not Available Not Available Not Avai lable nitrofurant oin monohydrate /macrocryst als 100 mg capsule TAKE 1 CAPSULE BY MOUTH EVERY 12 HOURS FOR 7 DAYS 02/14 completed Not Available Not Available Not Available levothyroxi ne 08/16 completed Not Available Not Available Not Available Fish Oil 500mg twice per day active Not Available Not Available No t Available butalbital- acetaminoph en-caffeine 50 mg-300 mg-40 mg capsule 10/16 completed Not Available Not Available Not Available Probiotic once a day active Not Available Not Available No t Available Theragran-M Premier 50 Plus 1 per day 07/05 completed Not Available Not Available Not Available Fluad 65yr up(PF)45 mcg(15 mcgx3)/0.5 mL intramuscul ar syringe 02/21 completed Not Available Not Available Not Available Fluad 2018-19 65yr up(PF)45 mcg(15 mcgx3)/0.5 mL intramuscul ar syringe 10/25 completed Not Available Not Available Not Available Fluzone High-Dose 2018- (PF) 180 mcg/0.5 mL intramuscul ar syringe 11/06 completed Not Available Not Available Not Available Fluad Quad 9877-3805(6 5yr up)(PF) 60 mcg (15 mcg x 4)/0.5mL IM syringe 10/16 completed Not Available Not Available Not Available Paxlovid 300 mg (150 mg x 2)-100 mg tablets in a dose pack TAKE 1 TABLET OF NIRMATREL VIR AND 1 TABLET OF RITONAVIR BY MOUTH TWICE DAILY FOR 5 DAYS 04/06 completed Not Available Not Available Not Available Paxlovid 150 mg-100 mg tablets in a dose pack (Renal Dose) Take 1 tablet twice a day by oral route for 5 days. 04/06 completed Not Available Not Available Not Available Vitals Date Recorded Body height Heart rate Oxygen saturation Oxygen saturation in Arterial blood by Pulse oximetry Systolic blood pressure Diastolic blood pressure Provider Name and Address Organization Details Last Updated DateTime 4 158.12 cm 93 /min 97 % 97 % 132 mm[Hg] 82 mm[Hg] Yesenia Zeyad [facility] 4 13:33:44 Date Recorded Body height Body mass index (BMI) Body weight Heart rate Oxygen saturation Oxygen saturation in Arterial blood by Pulse oximetry Systolic blood pressure Diastolic blood pressure Provider Name and Address Organization Details Last Updated DateTime 4 158.12 cm 32.5 kg/m2 59416.0 3 g 96 /min 100 % 100 % 150 mm[Hg] 80 mm[Hg] Shari Mcdonald [facility] 4 13:57:46 Social History Question Answer Notes LastModified by Organizat ion Details LastModified Time Tobacco Smoking Status Never Smoker Ruby hollis [facility] 02/21/2018 09:10:25 What Was The Date Of Your Most Recent Tobacco Screening? 02/15/2024 [email or web address] Information not available 02/15/2024 Do You Or Have You Ever Used Any Other Forms Of Tobacco Or Nicotine? No [email or web address] Information not available 11/24/2023 Sex: Unknown Functional Status None recorded. Mental Status None recorded. Family History Nothing Reported. Medical History No medical history recorded. Gynecological HistoryNo gynecological history recorded. Obstetrics History GPAL:G 0 P 0 0 0 0 Immunizations Vaccine Type Date Status Note Provider Nam e and Address Organization Details Recorded Time Tdap 1 completed Not Available [facility] 05/15/2023 12:35:36 zoster, unspecified formulation 1 completed [facility] 07:51:31 Influenza, split virus, quadrivalent, preservative 1 completed [facility] 11/24/2023 07:51:31 COVID-19, mRNA, LNP-S, PF, 30 mcg/0.3 mL dose 1 completed [facility] 11/24/2023 07:51:31 Influenza, split virus, quadrivalent, preservative 2 completed Kimberly Gencarelle [facility] 11/24/2023 07:51:31 influenza, unspecified formulation 3 completed [facility] 11/24/2023 07:51:31 Influenza, split virus, quadrivalent, preservative 8 completed [facility] 11/24/2023 07:51:31 Influenza, split virus, quadrivalent, preservative 9 completed [facility] 11/24/2023 07:51:31 Influenza, split virus, quadrivalent, preservative 0 completed [facility] 11/24/2023 07:51:31 Influenza, split virus, quadrivalent, preservative 0 completed [facility] 11/24/2023 07:51:31 pneumococcal polysaccharide PPV23 8 completed Kimberly Gencarelle null, [facility] 11/24/2023 07:51:31 COVID-19, mRNA, LNP-S, PF, 30 mcg/0.3 mL dose 1 completed Kimberly Gencarelle null, [facility] 11/24/2023 07:51:31 COVID-19, mRNA, LNP-S, PF, 30 mcg/0.3 mL dose 1 completed Kimberly Gencarelle null, [facility] 11/24/2023 07:51:31 Past Encounters Encounter ID Performer Location Encounter Start Date Encounter Closed Date Diagnosis/Indication Diagnosis SNOMED-CT Code Diagnosis ICD10 Code Diagnosis Note [id number] Callie London NP, [address] [address] 02/21/2018 08:47:38 02/21/2018 12:25:36 Adult health examination 750889391 Z00.00 I10 Screening for cardiovascular system disease 774795808 Z13.6 Screening for osteoporosis 433487157 Z13.820 Screening mammography 24 250711 Z12.31 Osteopenia 649102882 M85 .80 M85.50 Hypothyroidism 00000406 E03.9 Localized osteoarthrosis 11911396 M17.0 [id number] Callie London NP, [address] [address] 04/15/2018 10:33:53 04/15/2018 11:42:35 Pain in right knee 3079094454 98699 M25.561 Pain in left knee 265617 7391 77800 M25.562 [id number] Callie London NP, [address] [address] 06/22/2018 09:56:17 06/22/2018 14:52:45 Edema of lower extremity 380849741 R60.0 Hypercholesterolemia 136 18565 E78.00 reviewed labs, good control Hypothyroidism 69316865 E03.9 stable Essential hypertension 33748670 I10 to start lasix, decrease lisinopril to 5 mg until f/u appt. bring in home BP cuff [id number] Callie London NP, [facility] [address] [facility] [address] [place] [address] 07/06/2018 10:39:41 07/06/2018 13:35:35 Adult health examination 164331968 Z00.00 I10 Hypercholesterolemia 136 69897 E78.00 reviewed labs, good control Impaired f asting glycemia 988142663 R73.01 Hypothyroidism 98842019 E03.9 stable Essential hypertension 18330752 I10 continue lasix and lisinopril at 5 mg Peripheral edema 9203618 00 R60.9 improved, follow [id number] Callie London NP, [facility] [address] [facility] [address], [place] [address] 10/25/2018 11:04:44 10/25/2018 14:47:07 Abdominal pain 61455079 R10.9 Pain of ri ght shoulder joint 9905706919 9897185 M25.511 Hypercholesterolemia 136 46385 E78.00 await labs to do today, has f/u next week Essential hypertension 82269349 I10 stable Carotid ar johnnie stenosis 88332948 I65.29 No change , up to date with vascular [id number] Callie London NP, [facility] [address] [facility], [place] [address] 10/31/2018 09:03:41 10/31/2018 09:35:19 Adult health examination 576636622 Z00.00 I10 Hypothyroidism 91187485 E03.9 stable Essential hypertension 15215476 I10 stable Impingemen t syndrome of right shoulder region 7486582617 41665 M75.41 Abdominal pain 88863318 R10.9 Active or passive immunization 276437724 Z23 Pt to consider shingrix, had Zoster in past pt believes she had Tdap 8 years ago, will check her home records and call us back [id number] February JANAE Vega [facility] [address] [facility] [address], [place] [address] 11/25/2018 11:07:35 11/25/2018 12:18:18 Cough [id number] R05 Cholecystitis 30166931 K 81.9 s/p cholecyste ctomy Pneumonia 385037668 J18. 9 must treat as HCAP though she is stable from a vital standpoint and f/u next week mucinex-dm lots of fluids if sx change or worsen she [place] agreed [place]x [id number] Usama Coleman [facility] [address] [facility] [address],[place] [address] 11/30/2018 15:07:29 11/30/2018 19:13:02 Pneumonia 084682718 J18.9 finish the levofloxac in insist she take a probiotic Essential hypertension 36198347 I10 is doing very good no change [id number] Usama Coleman [facility] [address] [facility] [address],[place] [address] 03/15/2019 14:51:15 03/15/2019 15:45:48 Hypothyroidism 80920562 E03.9 will have her rechk lab Essential hypertension 89060180 I10 is doing very good no change Carotid ar johnnie stenosis 27977894 I65.29 cont atorvastat Osteoarthr itis of knee 686229399 M17.0 feel she needs to go back to dr troy to have eval and see if this has any other options to keep her moving Allergic rhinitis 182367 04 J30.9 cont to tx conserv Anxiety 03728336 F41.9 [id number] Usama Coleman [facility] [address] [facility] [address],[place] [address] 06/21/2019 10:09:00 06/21/2019 11:06:49 Hypercholesterolemia 06240286 E78.00 excellent overall LDL less than 95 Impaired f asting glycemia 557765533 R73.01 a1c is 5.6 Essential hypertension 86303208 I10 is doing very good no change home bps are now running 110-120's systolics Hypothyroidism 29148460 E03.9 will have her rechk lab Exposure t o ionizing radiation from geological sources 343155008 W88.8XXA pt will be following up with specialist to test her property [id number] Usama Coleman DO [facility] [address] [facility] [address],[place] [address] 11/06/2019 16:10:05 11/06/2019 16:39:59 Essential hypertension 99984640 I10 bps have been stable Hypothyroidism 31056870 E03.9 will have her rechk lab Impaired f asting glycemia 954212764 R73.01 a1c is 5.8 last lab and was 5.6 prior to that Hypercholesterolemia 136 94690 E78.00 excellent overall LDL less than 95 Osteoarthr itis of knee 728531110 M17.0 will cont to treat conserv as she is not interested in any further surg Headache 29797325 R51 [id number] February JANAE Vega [facility] [address] [facility] [address],[place] [facility] [address] 07/28/2019 15:41:58 07/28/2019 16:17:58 Wasp sting 253601484 T63.461A Cellulitis 599024284 L03 .90 low suspicion of cellulitis , but with developmen t of pustule will rx abx to take if sx change or worsen over the weekend Essential hypertension 91746833 I10 elevated - need to monitor [id number] Usama Coleman [facility] [address] [facility],[place] [address] 10/16/2020 10:24:26 10/16/2020 11:26:07 Essential hypertension 72532417 I10 bps have been stable at home see reports Hypothyroidism 08056773 E03.9 will have her rechk lab as the tsh is at 4.4 Impaired f asting glycemia 404699408 R73.01 a1c is 5.6 and was 5.8 last lab and was 5.6 prior to that Muscle pain 58910588 M79 .10 first she will stop the amitriptyl ine and see if this is the problem if not then the following week she will stop the atorvastat in and resume the amitript Hypercholesterolemia 136 07830 E78.00 excellent overall LDL still less than 95 Headache 76603059 R51.9 will see what happens if amitriptyl line is the cause we will have her try the topiramate [id number] GENEVA GREY [facility] [address] [facility],[place] [address] 02/04/2021 13:56:18 02/04/2021 14:22:58 Dysuria 58343873 R30.9 will fu with results, dip was normal Casey hematuria 60378467 5 R31.0 will check her kidney function and fu with results [id number] Usama Coleman [facility] [address] [facility],[place] [address] 04/28/2021 16:26:41 04/28/2021 17:04:10 Degeneration of cervical intervertebral disc 50927186 M50.30 here for rechk and we will refer her to dr khanna if her pain exacerbate s Essential hypertension 91660839 I10 bps have been stable at home see reports Cervico-oc cipital neuralgia 54474446 M54.81 has had ongoing headaches for years Gilbert's syndrome 13608 000 E80.4 discussed lab in detail [id number] Usama Coleman [facility] [address] [facility],[place] [address] 12/09/2021 11:19:57 12/09/2021 13:34:23 Blood in urine 06336588 R31.9 we will tx empiricall y for uti but with stipulatio n that if hematuria persists or returns she will need to see a urologist for evaluation of other causes important and she understand sshe will call next week with update [id number] GENEVA GREY [facility] [address] [facility],[place] [address] 01/09/2022 11:26:31 01/09/2022 15:22:15 Dysuria 37734323 R30.9 fu with culture results and start on abx in the meantimeal so set up with urology referral Casey hematuria 5 R31.0 will fu with bladder US and urology referral [id number] GENEVA GREY [facility] [address] [facility],[place] [address] 04/06/2022 16:13:29 04/06/2022 17:17:46 Pain of bilateral knee joints 6977543269 16629 M25.561 will fu with repeat XRs Hyperlipidemia 90607738 E78.2 will fu with lab every 6 mos Impaired f asting glycemia 044353840 R73.01 will fu with A1c draw Pain of ri ght knee joint 7805346781 55862 M25.561 will fu with US knee and XR knees 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 needs repeat cystoscope in 6 mos [id number] Usama Coleman [facility] [address] [facility] [address],[place] [address] 12/16/2022 11:30:10 12/16/2022 13:25:44 Adult health examination 305891279 Z00.00 here and doing well Screening for cardiovascular system disease 239806028 Z13.6 still doing great and seeing vascular Carcinoma of urinary bladder 069000289 C67.9 doing great and is still feeling well Advance care planning 71 9950625 Z71.89 utd Active or passive immunization 813801149 Z23 patient advised she is due for pneu 13 & shingles Anxiety 09552086 F41.9 [id number] Usama Coleman [facility] [address] [facility],[place] [address] 07/05/2023 10:10:20 07/05/2023 11:07:40 Essential hypertension 69806660 I10 bps have been stable at home see reports Hypercholesterolemia 136 46770 E78.00 excellent overall LDL still less than 95 Hyperlipidemia 96314164 E78.2 doing well and LDL is great at 84 Hypothyroidism 17739901 E03.9 will have her rechk lab as the tsh is at 4.8 on the last one done in november Headache 58288192 R51.9 was given fiorinal by neurologis t Anxiety 30731601 F41.9 has an issue with this will take half a tab on occasion but very rare [id number] Usama Coleman [facility] [address] [facility] [address],[place] [address] 11/24/2023 07:51:26 11/24/2023 13:51:56 Degeneration of cervical intervertebral disc 66200729 M50.30 here for rechk and we will refer her to dr khanna if her pain exacerbate s Essential hypertension 37607496 I10 bps have been stable at home see reports Hypercholesterolemia 136 79584 E78.00 excellent overall LDL still less than 95 Carotid ar johnnie stenosis 81948241 I65.29 cont atorvastat Anxiety 83459472 F41.9 has an issue with thiswill take half a tab on occasion but very rare [id number] Usama Coleman [facility] [address] [facility] [address],[place] [address] 02/15/2024 13:24:36 02/15/2024 14:23:10 Anxiety 69971812 F41.9 has an issue with thiswill take half a tab on occasion but very rare Hypothyroidism 54325436 E03.9 will have her rechk lab as the tsh is at 4.8 on the last one done in november Essential hypertension 32256225 I10 bps have been stable at home see reports Carotid ar johnnie stenosis 43477245 I65.29 cont atorvastat no bruits Headache 09768132 R51.9 was given fiorinal by neurologis t [id number] Usama Coleman [facility] [address] [facility] [address],[place] [address] 08/16/2024 13:49:38 08/16/2024 15:10:40 Depression screening 019066916 Z13.31 neg Essential hypertension 26077686 I10 bps have been stable at home see reports Headache 70495514 R51.9 was given fiorinal by neurologis t Screening for osteoporosis 140842688 Z13.820 Osteopenia 204232540 M85 .80 [id number] GENEVA GREY [facility] [address] [facility] [address],[place] [address] 11/17/2024 09:17:04 11/17/2024 10:09:29 Sore throat 864953247 J02.8 start on medication s as prescribed can take regular APAP for pain, avoid the cold and flu medication s due to risk for elevated BP Cough 78144461 R05.1 can use guaifenesi n [id number] GENEVA GREY [facility] [address] [facility] [address],[place] [address] 01/09/2025 09:30:50 01/09/2025 14:36:54 Acute bronchitis 50248037 J20.8 will set up z kojo Cough 70125347 R05.1 can use guaifenesi n continued Health Concerns Section Related Observation LastModified by Organization Detai ls LastModified Time None Recorded Concern Status LastModified by Organization Details LastModified Time None Recorded Advance Directives Directive None Recorded Payers Encounter Date Sequence Insurance Name Policy Number Policy Florentino Covered Member ID Florentino Member ID Guarantor Name 11/24/2023 1 [place] PPO) [id number] Anabela E Kristopher [id number] Anabela Kristopher 02/15/2024 1 [place]) [id number] Anabela E Kristopher [id number] Anabela Kristopher 08/16/2024 1 [place]) [id number] Anabela E Kristopher [id number] Anabela Kristopher 11/17/2024 1 [place]) [id number] Anabela E Kristopher [id number] 928 Anabela Kristopher 01/09/2025 1 [place]) [id number] Anabela E Kristopher [id number] 928 Anabela Kristopher Notes Date Note Type Note Provider Name and Address Organization Details Recorded Time 11/24/19 24 text/ht ml patient is evaluated via tele/video assessment per patient consentduring current pandemic here for rech k and results of carotid study done was reassuringrelates feeling anxious at timeslong detailed discussion :state is very anxious and has been very stressedrelates she has been feeling this way for quite a whileher bp she has noted has been going up a bit and was 139/64 today Usama Coleman, DO [address] [facility], [place], [address], [facility] 11/24/2023 11:12:14 02/15/20 24 text/ht ml Care Management - HypertensionReported bypatient.Self Care:not under emotional stress Severity:symptoms are improving; does not interfere with daily activities Associated Symptoms:no dizziness; no lightheadedness; no chest pain; no shortness of breath; no palpitations; no edema; no calf muscle cramps; no blurred vision; no confusion; no headaches; no fatigueHypothyroidReported bypatient.Associated Symptoms:no weakness; no lightheadedness; no fatigue; no cold intolerance; no constipation; no weight gain; no involuntary weight loss; normal mood; no menstrual irregularity; no pain; no dry/coarse skin; no edema; no deepening of the voice; no hoarseness; no goiter; no mass detected; no chest pain; no palpitations Treatment:taking medication as directed here for rechk and doing okreview of bp shows excellent readingstaking the escitalopram at 5mg made her fidgety and nervous Usama Coleman DO [address] [place] [address], [phone], [facility] 02/15/2024 13:53:20 08/16/20 24 text/ht ml here for rechk of her bpno major issuesstill occ headachesotherwise no cp no sobappetite good sleep is ok Usama Coleman DO [address] [place] [address], [phone], [facility] 08/16/2024 14:48:04 08/16/20 24 text/ht ml Care Management - HypertensionReported bypatient.Self Care:not under emotional stress Severity:symptoms are improving; does not interfere with daily activities Associated Symptoms:no dizziness; no lightheadedness; no chest pain; no shortness of breath; no palpitations; no edema; no calf muscle cramps; no blurred vision; no confusion; no headaches; no fatigue Usama Coleman DO [address] [place] [address], [phone], [facility] 08/16/2024 14:48:04 11/17/20 24 text/ht ml c/ sore throat The patient is participating in this appointment via telemedicine communication with a phone call/video calling service ([email or web address])The patient consents to use of these platforms in place of an in-person appointment due to either sick symptoms the patient is presenting with or current office closure due to COVID exposure in order to keep our office staff and patients safe The patient presents to the office today with concerns of sick symptoms including sore throat, cough, hoarseness of voice, laryngitis, body aches, rhinorrhea, subjectively warm The patient went to , they tested for strep (RAPID), negativedoes not have the results of the send out culture The patient reports that elevated BP at due to medication she was taking, has since d/c medication, her BP prior to this call was 136/74 which is improving The symptoms started originally yesterdayThe patient reports exposure to friends and family with similar sick symptomsThe patient symptoms mainly involves the sore throat and hoarseness Pertinent comorbidities include age, hx of cancer The patient symptoms are alleviated by vocal rest, restThe patient symptoms are exacerbated by cold air, talking, activity The patient has tested for COVID-19 and the results was negative x1 GENEVA GREY [address] [place], [address], [facility] 11/17/2024 09:56:50 01/09/20 25 text/ht ml c/o cough The patient is participating in this appointment via telemedicine communication with a phone call/video calling service ([email or web address])The patient consents to use of these platforms in place of an in-person appointment due to either sick symptoms the patient is presenting with or current office closure due to COVID exposure in order to keep our office staff and patients safe The patient presents to the office today with concerns of sick symptoms including rhinorrhea, cough, chest tightness, productive cough, some laryngitis (intermittent loss of voice) no fever, chills, sob has been using robitussin, OTC cold and flu medication which haven't worked fully The symptoms started originally patient reports exposure to 250 people at a within the last few weeksThe patient symptoms mainly involves the cough, chest tightness Pertinent comorbidities include age, recent infection The patient symptoms are alleviated by rest, somewhat with robitussinThe patient symptoms are exacerbated by activity and cold air The patient has tested for COVID-19 and the results was negative GENEVA GREY [address] [place], [address], [facility] 01/09/2025 14:29:47 OBGyn Episode No OBEpisode recorded.
[2025-02-27 13:12] LABS: MANUAL DIFF FLAG NO
[2025-02-27 13:29] LABS: Basophils Percent Auto 0.7 % (0-2); Eosinophils Absolute Auto 0.1 X10*3/uL (0.0-0.4); Eosinophils Percent Auto 2.2 % (0-4); Hematocrit 40.4 % (37.0-47.0); Hemoglobin 13.2 g/dl (12.0-16.0); Imm Gran Abs Auto 0.02 X10*3/uL (0.00-0.03); Imm Gran Pct Auto 0.5 % (0.0-0.4); Lymphocytes Absolute Auto 1.2 X10*3/uL (1.2-4.9); Mean Corpuscular HGB Conc 32.7 g/dl (31.0-35.0); Mean Corpuscular Hemoglobin 30.8 pg (27.0-33.0); Mean Corpuscular Volume 94.2 fL (80.0-98.0); Mean Platelet Volume 11.2 fL (9.4-12.3); Monocytes Absolute Auto 0.5 X10*3/uL (0.1-1.2); Monocytes Percent Auto 12.7 % (2-11); Neutrophils Absolute Auto 2.2 x10*3/uL (2.0-8.3); Neutrophils Percent Auto 54.9 % (45-73); Platelet Count 203 X10*3/uL (160-400); Red Blood Count 4.29 X10*6/uL (4.20-5.50); Red Cell Distribution Width 12.3 % (11.0-16.0)
[2025-02-27 16:57] LABS: Alanine Aminotransferase 23 U/L (0-31); Albumin Level 4.1 g/dL (3.5-5.0); Anion Gap 12 (12-20); Aspartate Amino Transferase 35 U/L (5-31); Bilirubin Total 1.3 mg/dL (0.0-1.0); Blood Urea Nitrogen 10 mg/dL (9-16); Calcium 9.3 mg/dL (8.4-10.2); Carbon Dioxide 23 mmol/L (22-29); Chloride 109 mmol/L (96-108); Cholesterol 175 mg/dL (<200); Estimated Glomerular Filt Rate > 60; Glucose Random 103 mg/dL (60-115); HDL Cholesterol 65 mg/dL (>40); LDL Cholesterol Calculated 83 mg/dL (<100); Potassium 4.1 mmol/L (3.3-5.1); Sodium 140 mmol/L (135-145); Total Protein 6.6 g/dL (6.5-8.0); Triglycerides 135 mg/dL (<150)
[2025-02-27 17:15] LABS: Thyroid Stimulating Hormone 2.57 uIU/mL (0.32-4.0)
[2025-02-27 17:27] LABS: T4 Thyroxine 8.3 ug/dL (4.5-12.0)
[2025-02-27 18:19] LABS: Alkaline Phosphatase 78 U/L (39-117)
== END 2025-02-27 08:33 | disposition home or self-care (01) ==
LOC: HO.MANLDS 08:32
PROVIDERS: Visit Provider Internal Medicine
DX: I10 Essential (primary) hypertension (principal); E03.9 Hypothyroidism, unspecified; E78.00 Pure hypercholesterolemia, unspecified
CPT/HCPCS: 36415; 80053; 80061; 84436; 84443; 85025

== ENCOUNTER 2025-05-09 10:32 | Outpatient (REF) | payer MEDICARE, SELFPAY ==
--- OUTSIDE RECORDS SUMMARY | 2025-05-09 12:00 | XMS_ITS | Data Portability ---
Author Organization [facility], Telehealth Patient Home Address [address] [place] [address] Assessment Encounter Date Assessment Date Assessment LastModified by Organization Details LastModified Time 02/15/2024 02/15/2024 [id number] [place] [id number] (CLINICAL APPLICATION CONSULTANT) [facility] MUST MEET 2 OUT OF [...] COVERED Not available 02/15/2024 13:47:58 08/16/2024 08/16/2024 [id number] [place] [id number] (CLINICAL APPLICATION CONSULTANT) [facility] MUST MEET 2 OUT OF [...] secure platform [email or web address] Not available 01/09/2025 14:25:17 03/02/2025 03/02/2025 Patient presente d to office today for their Medicare Annual Wellness Visit. Education was provided on healthy nutrition, including a diet rich in fruits and vegetables, minimizing simple carbohydrates, salt, and saturated fats. Encouraged regular cardiovascular exercise such as walking at least 30 minutes daily, 5 times per week. Emphasized preventive health measures and educated pt on fall prevention and community-based lifestyle interventions to help reduce health risks and promote healthy living. [email or web address] Not available 02/25/2025 09:12:57 Plan of Treatment Reminders Order Date Submit Date Provider Last Modified By Organization Details Last Modified Time Details Appointments FOLLOW UP 15 2024 11:45A M DR COLEMAN Not available Not available Not available Lab lipid panel, blood 2024 025 [facility], [address] [place] [address], [address], 03/02/2025 10:43:09 hemoglobi n, gastroint estinal, stool 2024 025 [facility], [address] [place] [address], [address], [place], [address], 03/02/2025 10:27:44 TSH + free T4, serum 2024 025 [facility], [address] [place] [address], [facility] [address], [place], [address], 03/02/2025 10:28:05 CBC w/ auto diff 2024 025 [facility], [address] [place] [address], [address], 03/02/2025 10:43:10 CMP, serum or plasma 2024 025 [facility], [address] [facility], [place], [address], 03/02/2025 10:43:10 CMP, serum or plasma 2023 024 [facility], [address] [place] [address], [address], [place], [address], 02/15/2024 13:50:42 CBC 2023 [facility], [address] [place] [address], [address], [place], [address], 02/15/2024 13:50:42 vitamin D, 25-hydrox y, total, serum 2023 024 [facility], [address] [place] [address], [address], [place], [address], 02/15/2024 13:50:42 lipid panel, serum 2023 024 [facility], [address] [place] [address], [address], [place], [address], 02/15/2024 13:50:42 TSH + free T4, serum 2023 024 [facility], [address] [place] [address], [address], [place], [address], 02/15/2024 13:51:51 Referral None recorded. Procedures None recorded. Surgeries None recorded. Imaging bone density 2023 024 [facility], [address] [place] [address] [place], [address], 08/22/2024 16:00:09 Medication Orders azithromy jay 250 mg tablet 2024 025 [facility][id number], [address], [place], [id number], 01/09/2025 14:28:19 Medrol (Kojo) 4 mg tablets in a dose pack 2024 025 [facility]66674, [address], [place], [id number], 01/09/2025 14:28:16 prednison e 10 mg tablet 2023 025 [facility] #70793, [address], [place], [id number], 01/09/2025 09:35:49 amoxicill in 875 mg tablet 2023 025 [facility] #49541, [address], [place], [id number], 01/09/2025 09:35:42 butalbita l-acetami nophen-ca ffeine 50 mg-325 mg-40 mg tablet 2023 024 [facility][id number], [address], [place], [id number], 08/16/2024 14:48:01 butalbita l-acetami nophen-ca ffeine 50 mg-325 mg-40 mg tablet 2023 024 [facility] #05250, [address], [place], [id number], 02/15/2024 13:53:13 Synthroid 50 mcg tablet 2023 024 [facility], Located [facility], [place], [address], 02/15/2024 13:51:30 Patient TargetsNo targets recorded. Patient Instructions Encounter Date Encounter Id Patient Instructions Last Modified By Organization Details Last Modified Time 08/16/2024 [id number] headache: care instructions Not available 08/16/2024 14:15:55 high blood pressure: care instructions [email or web address] Not available 08/16/2024 14:15:55 learning about high blood pressure Not available 08/16/2024 14:15:55 03/02/2025 [id number] advance care planning: care instructions [email or web address] Not available 03/02/2025 10:27:44 Discussed and explained advance directives such as standard forms to the patient. Face to face discussion lasted for a duration of __43_ minutes. Not available 03/02/2025 10:29:59 Reason for Referral None Reported. Results Created Date Observation Date Name Description Value Unit Range Abnormal Flag Note LastModifiedBy Organization Detail LastModifiedTime 08/05/2007/06/2024 MAMMO , scree yanna, digit al, bilat eral No observ ation record ed. [address] [place], [address], 08/16/2024 14:04:54 09/14/20 24 09/13/2024 bone densi ty No observ ation record ed. [email or web address] [address] [place], [address], 09/15/2024 10:53:01 12/06/19 25 12/06/2024 XR, chest , 2 view No observ ation record ed. [email or web address] [address], [place], [address], 01/09/2025 14:18:28 Result Notes None recorded. Problems Name Problem SNOMED Code Status Onset Date Resolution Date Notes Provider Name and Address Organization Details Recorded Time Osteoart hritis of knee 213293163 Active 2018 Not Available [facility] 3 11:37:44 Hypothyr oidism 36933663 Active 2017 Not Available [facility] 3 11:37:44 Hypercho lesterol emia 76267586 Active 2017 Not Available [facility] 3 11:37:44 Impaired fasting glycemia 024636546 Active 2017 Not Available [facility] 3 11:37:44 Osteopen ia 515709387 Active 2017 Not Available [facility] 3 11:37:44 Degenera tion of cervical interver tebral disc 84805493 Active 2019 Not Available [facility] 3 11:37:44 Essentia l hyperten ness 28896567 Active 2017 Not Available [facility] 3 11:37:44 Carotid artery stenosis 96383620 Active 2017 Left Carotid US 2016 56-60% Not Available [facility] 3 11:37:44 Syncope 934826933 Active 2017 [facility] Admission syncope 03/2014 Not Available [facility] 3 11:37:44 Lyme disease 87164272 Active 2017 Treatment 2013 [facility] Available [facility] 3 11:37:44 Cervico- occipita l neuralgi a 50971776 Active 2020 Not Available [facility] 3 11:37:44 Pain of bilatera l knee joints 93227243953 4104 Active 2021 Not Available [facility] 3 11:37:44 Hyperlip idemia 49071971 Active 2021 Not Available [facility] 3 11:37:44 Pain of right knee joint 67264329822 4100 Active 2021 Not Available [facility] 3 11:37:44 Carcinom a of urinary bladder 516728671 Active 2021 Not Available [facility] 3 11:37:44 Bilatera l osteoart hritis of knees 38664321702 9107 Active 2021 Not Available [facility] 3 11:37:44 Anxiety 77227169 Active 2022 Not Available [facility] 3 11:37:44 Cough 48562749 Active 2022 Not Available [facility] 3 11:37:44 Headache 36462151 Active 2022 Not Available [facility] 3 11:37:44 Low back pain 656811068 Active 2022 Usama Coleman DO [address] [place], [address], [facility] 3 15:52:12 Hypothyr oidism 07092940 Active 2017 Not Available [facility] 3 11:37:44 Hypercho lesterol emia 92634229 Active 2017 Not Available [facility] 3 11:37:44 Impaired fasting glycemia 469054103 Active 2017 Not Available [facility] 3 11:37:44 Essentia l hyperten ness 86727839 Active 2017 Not Available [facility] 3 11:37:44 Osteopen ia 998269036 Active 2017 Not Available [facility] 3 11:37:44 Carotid artery stenosis 90875292 Active 2017 56-60% Not Available [facility] 3 11:37:44 Lyme disease 11521749 Active 2017 Not Available [facility] 3 11:37:44 Syncope 996151419 Active 2017 2014 Not Available [facility] 3 11:37:44 Sore throat 873400516 Active 2023 GENEVA GREY [address] [place], [address], [facility] 4 09:46:17 Pneumoni a 394331420 Active 2024 GENEVA GREY [address] [place], [address], [facility] 5 12:33:01 Acute bronchit is 00200042 Active 2024 GENEVA GREY [address] [place], [address], [facility] 5 14:22:00 Problem Notes None recorded. Procedures Surgical History Date Name Laterality Status Provider Name and Address Organization Details Recorded Time Appendectomy completed Callie farrell NP, S [address] [place] [address], [address], [facility] 10/31/2018 09:25:28 Cataract Surgery completed Callie ramirez NP, [address], [address], [facility] 10/31/2018 09:25:49 Cholecystectomy completed February JANAE Gomez [address] [place] [address], [address], [facility] 11/25/2018 12:01:00 Imaging Results None recorded. Procedure Notes None recorded. Medical Equipment None Reported. Allergies Allergen ID Allergen Name Allergen Category Reaction Reaction Severity Criticality Documentation Date Start Date Code Code System Note Provider Name and Address Organization Details Recorded Time 2992 Iodinated contrast media (substanc e) medicatio n vomiting Not available Not available 03/15/2019 45341 2004 SNOMED rash, fever Mita Kimball [facility] 9 14:56:27 8630 codeine medicatio n other Not available low 11/17/2024 2670 RxNorm CONNIE HYDE, [address], [address], [facility] 4 09:47:19 Medications Name Sig Start Date Stop Date Status Note LastModified by Organization Details LastModified Time celecoxib 200 mg capsule TAKE 1 CAPSULE BY MOUTH EVERY DAY 02/14 completed Not Available Not Available Not Available atorvastati n 40 mg tablet TAKE 1 TABLET DAILY active Not Available Not Available No t Available prednisone 10 mg tablet 40 mg x 2 days30 mg x 2 days20 mg x 2 days10 mg x 2 days 01/09 completed Not Available Not Available Not [...] 50 mcg tablet TAKE 1 TABLET DAILY active Not Available Not Available No t Available diclofenac sodium 75 mg tablet,michelet yed release [...] Available Not Available Not Available Fluzone High-Dose (PF) 180 mcg/0.5 mL intramuscul ar syringe 11/06 completed Not Available Not Available Not Available Fluad Quad (6 5yr up)(PF) 60 mcg (15 mcg x [...] mg-100 mg tablets in a dose pack (Moderate Renal Dose) Take 1 tablet twice a day [...] 97 % 132 mm[Hg] 82 mm[Hg] Yes[facility] 4 13:33:44 Date Recorded Body height Body mass index (BMI) Body weight Heart rate Oxygen saturation Oxygen saturation in Arterial blood by Pulse oximetry Systolic blood pressure Diastolic blood pressure Provider Name and Address Organization Details Last Updated DateTime 5 158.12 cm 32.5 kg/m2 96181.0 3 g 94 /min 98 % 98 % 148 mm[Hg] 82 mm[Hg] Shari Mcdonald [facility] 5 10:03:48 Date Recorded Body height Body mass index (BMI) Body weight Heart rate Oxygen saturation Oxygen saturation in Arterial blood by Pulse oximetry Systolic blood pressure Diastolic blood pressure Provider Name and Address Organization Details Last Updated DateTime 4 158.12 cm 32.5 kg/m2 11803.0 3 g 96 /min 100 % 100 % 150 mm[Hg] 80 mm[Hg] Shari Mcdonald [facility] 4 13:57:46 Social History Question Answer Notes LastModified by Organizat ion Details LastModified Time Tobacco Smoking Status Never [facility]oker [facility] 02/21/2018 09:10:25 What Was The Date Of Your Most Recent Tobacco Screening? 02/15/2024 [email or web address] Information not available 02/15/2024 Sex: Unknown Functional Status Question Answer Note LastModified by Organization D etails LastModified Time Do you or have you ever used any other forms of tobacco or nicotine? No [email or web address] Information not available 11/24/2023 Mental Status None recorded. Family History Nothing Reported. Medical History No medical history recorded. Gynecological HistoryNo gynecological history recorded. Obstetrics History GPAL:G 0 P 0 0 0 0 Immunizations Vaccine Type Date Status Note Provider Nam e and Address Organization Details Recorded Time Tdap 1 completed Not Available [facility] 05/15/2023 12:35:36 zoster, unspecified formulation 1 completed Kimberly Genc[facility]le [facility] 11/24/2023 07:51:31 Influenza, split virus, quadrivalent, preservative 1 completed Kimberly Gencarelle [facility] 11/24/2023 07:51:31 COVID-19, mRNA, LNP-S, PF, 30 mcg/0.3 mL dose 1 completed Kimberly Gencarelle [facility] 11/24/2023 07:51:31 Influenza, split virus, quadrivalent, preservative 2 completed Kimberly Gencarelle [facility] 11/24/2023 07:51:31 influenza, unspecified formulation 3 completed Kimberly Gencarelle null, [facility] 11/24/2023 07:51:31 Influenza, split virus, quadrivalent, preservative 8 completed Kimberly Gencarelle null, [facility] 11/24/2023 07:51:31 Influenza, split virus, quadrivalent, preservative 9 completed Kimberly Gencarelle null, [facility] 11/24/2023 07:51:31 Influenza, split virus, quadrivalent, preservative 0 completed Kimberly Gencarelle null, [facility] 11/24/2023 07:51:31 Influenza, split virus, quadrivalent, preservative 0 completed Kimberly Gencarelle [facility], [facility] 11/24/2023 07:51:31 pneumococcal polysaccharide PPV23 8 completed Kimberly Gencarelle null, [facility] 11/24/2023 07:51:31 COVID-19, mRNA, LNP-S, PF, 30 mcg/0.3 mL dose 1 completed Kimberly Gencarelle null, [facility] 11/24/2023 07:51:31 COVID-19, mRNA, LNP-S, PF, 30 mcg/0.3 mL dose 1 completed Kimberly Gencarelle [facility] 11/24/2023 07:51:31 Past Encounters Encounter ID Performer Location Encounter Start Date Encounter Closed Date Diagnosis/Indication Diagnosis SNOMED-CT Code Diagnosis ICD10 Code Diagnosis Note [id number] Callie London NP, S [facility] [address] [facility],[place] [address] 02/21/2018 08:47:38 02/21/2018 12:25:36 Adult health examination 196253394 Z00.00 I10 Screening for cardiovascular system disease 396388419 Z13.6 Screening for osteoporosis 855953295 Z13.820 Screening mammography 24 999143 Z12.31 Osteopenia 523942771 M85 .80 M85.50 Hypothyroidism 53104274 E03.9 Localized osteoarthrosis 55571271 M17.0 [id number] Usama Coleman [facility] [address] [facility],[place] [address] 04/15/2018 10:33:53 04/15/2018 11:42:35 Pain in right knee 2807043065 79273 M25.561 Pain in left knee 633267 3138 66422 M25.562 [id number] Usama Coleman [facility] [address] [facility],[place] [address] 06/22/2018 09:56:17 06/22/2018 14:52:45 Edema of lower extremity 202799740 R60.0 Hypercholesterolemia 136 91134 E78.00 reviewed labs, good control Hypothyroidism 49466413 E03.9 stable Essential hypertension 47909774 I10 to start lasix, decrease lisinopril to 5 mg until f/u appt. bring in home BP cuff [id number] Usama Coleman [facility] [address] [facility],[place] [address] 07/06/2018 10:39:41 07/06/2018 13:35:35 Adult health examination 061646119 Z00.00 I10 Hypercholesterolemia 136 21174 E78.00 reviewed labs, good control Impaired f asting glycemia 135802980 R73.01 Hypothyroidism 17618954 E03.9 stable Essential hypertension 11671424 I10 continue lasix and lisinopril at 5 mg Peripheral edema 0567740 00 R60.9 improved, follow [id number] Usama Coleman [facility] [address] [facility] [address],[place] [address] 10/25/2018 11:04:44 10/25/2018 14:47:07 Abdominal pain 94427573 R10.9 Pain of ri ght shoulder joint 6530097927 6783642 M25.511 Hypercholesterolemia 136 62947 E78.00 await labs to do today, has f/u next week Essential hypertension 16228506 I10 stable Carotid ar johnnie stenosis 38723349 I65.29 No change , up to date with vascular [id number] Usama Coleman [facility] [address] [facility],[place] [address] 10/31/2018 09:03:41 10/31/2018 09:35:19 Adult health examination 902183220 Z00.00 I10 Hypothyroidism 06349794 E03.9 stable Essential hypertension 48681733 I10 stable Impingemen t syndrome of right shoulder region 2001453086 82157 M75.41 Abdominal pain 71804792 R10.9 Active or passive immunization 285344461 Z23 Pt to consider shingrix, had Zoster in past pt believes she had Tdap 8 years ago, will check her home records and call us back [id number] Usama Coleman [facility] [address] [facility] [address] 11/25/2018 11:07:35 11/25/2018 12:18:18 Cough 69989225 R05 Cholecystitis 49081958 K 81.9 s/p cholecyste ctomy Pneumonia 180732217 J18. 9 must treat as HCAP though she is stable from a vital standpoint and f/u next week mucinex-dm lots of fluids if sx change or worsen [place]x [id number] Usama Coleman [facility] [address] [facility],[place] [address] 11/30/2018 15:07:29 11/30/2018 19:13:02 Pneumonia 876401725 J18.9 finish the levofloxac in insist she take a probiotic Essential hypertension 25980888 I10 is doing very good no change [id number] Usama Coleman [facility] [address] [facility],[place] [address] 03/15/2019 14:51:15 03/15/2019 15:45:48 Hypothyroidism 57913621 E03.9 will have her rechk lab Essential hypertension 49955640 I10 is doing very good no change Carotid ar johnnie stenosis 94195754 I65.29 cont atorvastat Osteoarthr itis of knee 269575547 M17.0 feel she needs to go back to dr troy to have eval and see if this has any other options to keep her moving Allergic rhinitis 639051 04 J30.9 cont to tx conserv Anxiety 00649268 F41.9 [id number] Usama Coleman [facility] [address] [facility], [place] [address] 06/21/2019 10:09:00 06/21/2019 11:06:49 Hypercholesterolemia 81778853 E78.00 excellent overall LDL less than 95 Impaired f asting glycemia 390760373 R73.01 a1c is 5.6 Essential hypertension 05113878 I10 is doing very good no change home bps are now running 110-120's systolics Hypothyroidism 10581775 E03.9 will have her rechk lab Exposure t o ionizing radiation from geological sources 553361644 W88.8XXA pt will be following up with specialist to test her property [id number] Usama Coleman [facility] [address] [facility], [place] [address] 11/06/2019 16:10:05 11/06/2019 16:39:59 Essential hypertension 49531307 I10 bps have been stable Hypothyroidism 52247243 E03.9 will have her rechk lab Impaired f asting glycemia 133975122 R73.01 a1c is 5.8 last lab and was 5.6 prior to that Hypercholesterolemia 136 23273 E78.00 excellent overall LDL less than 95 Osteoarthr itis of knee 902879645 M17.0 will cont to treat conserv as she is not interested in any further surg Headache 07174501 R51 [id number] Usama Coleman [facility] [address] [facility], [place] [address] 07/28/2019 15:41:58 07/28/2019 16:17:58 Wasp sting 004201195 T63.461A Cellulitis 285778279 L03 .90 low suspicion of cellulitis , but with developmen t of pustule will rx abx to take if sx change or worsen over the weekend Essential hypertension 26242927 I10 elevated - need to monitor [id number] Usama Coleman [facility] [address] [facility],[place] [address] 10/16/2020 10:24:26 10/16/2020 11:26:07 Essential hypertension 93890438 I10 bps have been stable at home see reports Hypothyroidism 51787734 E03.9 will have her rechk lab as the tsh is at 4.4 Impaired f asting glycemia 627732256 R73.01 a1c is 5.6 and was 5.8 last lab and was 5.6 prior to that Muscle pain 21965563 M79 .10 first she will stop the amitriptyl ine and see if this is the problem if not then the following week she will stop the atorvastat in and resume the amitript Hypercholesterolemia 136 19834 E78.00 excellent overall LDL still less than 95 Headache 73787178 R51.9 will see what happens if amitriptyl line is the cause we will have her try the topiramate [id number] Usama Coleman [facility] [address] [facility],[place] [address] 02/04/2021 13:56:18 02/04/2021 14:22:58 Dysuria 95585927 R30.9 will fu with results, dip was normal Casey hematuria 32051012 5 R31.0 will check her kidney function and fu with results [id number] Usama Coleman [facility] [address] [facility],[place] [address] 04/28/2021 16:26:41 04/28/2021 17:04:10 Degeneration of cervical intervertebral disc 44484013 M50.30 here for rechk and we will refer her to dr khanna if her pain exacerbate s Essential hypertension 25754115 I10 bps have been stable at home see reports Cervico-oc cipital neuralgia 61132800 M54.81 has had ongoing headaches for years Gilbert's syndrome 56183 000 E80.4 discussed lab in detail [id number] Usama Coleman [facility] [address] [facility], [place] [address] 12/09/2021 11:19:57 12/09/2021 13:34:23 Blood in urine 81377640 R31.9 we will tx empiricall y for uti but with stipulatio n that if hematuria persists or returns she will need to see a urologist for evaluation of other causes important and she understand sshe will call next week with update [id number] Usama Coleman [facility] [address] [place] [address],[place] [address] 01/09/2022 11:26:31 01/09/2022 15:22:15 Dysuria 99313460 R30.9 fu with culture results and start on abx in the meantimeal so set up with urology referral Casey hematuria 82228895 5 R31.0 will fu with bladder US and urology referral [id number] Usama Coleman [facility] [address] [facility],[place] [address] 04/06/2022 16:13:29 04/06/2022 17:17:46 Pain of bilateral knee joints 9548835895 15491 M25.561 will fu with repeat XRs Hyperlipidemia 55074093 E78.2 will fu with lab every 6 mos Impaired f asting glycemia 598525545 R73.01 will fu with A1c draw Pain of ri ght knee joint 9497497964 15134 M25.561 will fu with US knee and XR knees Carcinoma of urinary bladder 558863255 C67.9 needs repeat cystoscope in 6 mos [id number] Usama Coleman [facility] [address] [place] [address],[place] [address] 12/16/2022 11:30:10 12/16/2022 13:25:44 Adult health examination 095024957 Z00.00 here and doing well Screening for cardiovascular system disease 602786630 Z13.6 still doing great and seeing vascular Carcinoma of urinary bladder 495779648 C67.9 doing great and is still feeling well Advance care planning 71 9386912 Z71.89 utd Active or passive immunization 048102249 Z23 patient advised she is due for pneu 13 & shingles Anxiety 47875640 F41.9 [id number] Usama Coelman [facility] [address] [facility],[place] [address] 07/05/2023 10:10:20 07/05/2023 11:07:40 Essential hypertension 85400021 I10 bps have been stable at home see reports Hypercholesterolemia 136 28435 E78.00 excellent overall LDL still less than 95 Hyperlipidemia 22784544 E78.2 doing well and LDL is great at 84 Hypothyroidism 41852717 E03.9 will have her rechk lab as the tsh is at 4.8 on the last one done in november Headache 56722175 R51.9 was given fiorinal by neurologis t Anxiety 33274346 F41.9 has an issue with this will take half a tab on occasion but very rare [id number] Usama Coleman, [facility] [address] [facility] [address] 11/24/2023 07:51:26 11/24/2023 13:51:56 Degeneration of cervical intervertebral disc 28278909 M50.30 here for rechk and we will refer her to dr khanna if her pain exacerbate s Essential hypertension 87614999 I10 bps have been stable at home see reports Hypercholesterolemia 136 49355 E78.00 excellent overall LDL still less than 95 Carotid ar johnnie stenosis 77743511 I65.29 cont atorvastat Anxiety 23004688 F41.9 has an issue with thiswill take half a tab on occasion but very rare [id number] Usama Coleman [facility] [address] [facility] [address] [address] 02/15/2024 13:24:36 02/15/2024 14:23:10 Anxiety 58151638 F41.9 has an issue with thiswill take half a tab on occasion but very rare Hypothyroidism 62624618 E03.9 will have her rechk lab as the tsh is at 4.8 on the last one done in november Essential hypertension 40699536 I10 bps have been stable at home see reports Carotid ar johnnie stenosis 93893295 I65.29 cont atorvastat no bruits Headache 63913858 R51.9 was given fiorinal by neurologis t [id number] Usama Coleman [facility] [address] [facility] [address] [address] 08/16/2024 13:49:38 08/16/2024 15:10:40 Depression screening 217139985 Z13.31 neg Essential hypertension 84360100 I10 bps have been stable at home see reports Headache 29702448 R51.9 was given fiorinal by neurologis t Screening for osteoporosis 498367209 Z13.820 Osteopenia 114096724 M85 .80 192229 Usama Coleman [facility] [address] [facility],[place] [facility] [place] [address] 11/17/2024 09:17:04 11/17/2024 10:09:29 Sore throat 623140786 J02.8 start on medication s as prescribed can take regular APAP for pain, avoid the cold and flu medication s due to risk for elevated BP Cough 46057620 R05.1 can use guaifenesi n [id number] Usama Coleman [facility] [address] [facility] [address] [address] 01/09/2025 09:30:50 01/09/2025 14:36:54 Acute bronchitis 93702639 J20.8 will set up z kojo Cough 17079328 R05.1 can use guaifenesi n continued [id number] Usama Coleman [facility] [address] [facility] [address] [employer] [place] [address] 03/02/2025 09:56:32 03/02/2025 10:55:24 Adult health examination 810531697 Z00.00 here and doing well Screening for cardiovascular system disease 899173866 Z13.6 still doing great and seeing vascular Screening for malignant neoplasm of colon 699437117 Z12.11 will consider Essential hypertension 92273563 I10 bps have been stable at home see reports Hypercholesterolemia 136 56558 E78.00 excellent overall LDL still less than 95 Hypothyroidism 64732440 E03.9 will have her rechk lab as the tsh is at 4.8 on the last one done in november Depression screening 171 Z13.31 neg Health Concerns Section Related Observation LastModified by Organization Detai ls LastModified Time None Recorded Concern Status LastModified by Organization Details LastModified Time None Recorded Advance Directives Directive None Recorded Payers Insurance Date Sequence Insurance Name Policy Number Policy Florentino Covered Member ID Florentino Member ID Guarantor Name 05/09/2025 1 [place] (MEDICARE REPLACEMENT PPO) [id number] Anabela Morales Kristopher [id number] Anabela Summers 05/09/2025 2 [place] [employer] Anabela Morales Kristopher [id number] Anabela Summers Notes Date Note Type Note Provider Name and Address Organization Details Recorded Time 02/15/20 24 text/ht ml Care Management - [...] her fidgety and nervous Usama Coleman DO [address] [place] [address], [phone], [facility] 02/15/2024 13:53:20 08/16/20 text/ht ml here for rechk of her bpno major issuesstill occ headachesotherwise no cp no sobappetite good sleep is ok Usama Coleman DO [address] [place] [address], [phone], [facility] 08/16/2024 14:48:04 08/16/20 24 text/ht ml Care Management - HypertensionReported bypatient.Self Care:not under emotional stress Severity:symptoms are improving; does not interfere with daily activities Associated Symptoms:no dizziness; no lightheadedness; no chest pain; no shortness of breath; no palpitations; no edema; no calf muscle cramps; no blurred vision; no confusion; no headaches; no fatigue Usama Coleman DO [address] [facility], [place], [address], [facility] 08/16/2024 14:48:04 11/17/20 24 text/ht ml c/ sore throat The patient is participating in this appointment via telemedicine communication with a phone call/video calling service (Doxy)The patient consents to use of these platforms [...] COVID-19 and the results was negative GENEVA Pacheco [address] [place], [address], [facility] 11/17/2024 09:56:50 01/09/20 25 text/ht ml c/o cough The patient is participating in this appointment via telemedicine communication with a phone call/video calling service (Doxy)The patient consents to use of these platforms [...] the results was negative GENEVA GREY [address] [place], [address], [facility] 01/09/2025 14:29:47 03/02/20 25 text/ht ml Care Management - Acquired HypothyroidismReported bypatient.Medication Education:understands administration; understands effect of concurrent medications; understands missed doses; understands consequences of noncompliance Associated Symptoms:no abnormal weight gain; no tiredness; no dry skin; no cold intolerance; no constipation; no diarrhea; no goiterMedicare Annual Wellness VisitReported bypatient.Diet and Nutrition:healthy diet Fracture Risk:no history of fractures; no recent explained fracture; no sudden unexplained fractures; no previous musculoskeletal injuries Physical Activity:exercises on a regular basis; recent increase in physical activity; good physical condition Depression Risk:never feels sad, empty, or tearful; no loss of interest in activities; no significant changes in weight; no sleep disturbances or insomnia; no agitation; no loss of energy; no feelings of worthlessness or guilt; no thoughts of suicide; no history of depression; no history of mood disorders Orientation:no disorientation to time; no disorientation to date; no disorientation to place Concentration and Memory:no decreased concentrating ability; no memory lapses or loss; does not forget words Speech/Motor difficulties:no speech difficulties; no difficulty expressing formulated concepts; no difficulty with fine manipulative tasks; no difficulty writing/copying; no slowed reaction time; does not knock things over when trying to pick them up Hearing:no loss of hearing Vision:no vision problems Activities of Daily Living:able to bathe with limited or no assistance; able to contol urination and bowels; able to dress with limited or no assistance; able to feed self with limited or no assistance; able to get out of chair or bed with limited or no assistance; able to groom with limited or no assistance; able to toilet with limited or no assistance Instrumental Activities of Daily Living:able to do house work with limited or no assistance; able to grocery shop with limited or no assistance; able to manage medications with limited or no assistance; able to manage money with limited or no assistance; able to prepare meals with limited or no assistance; able to use the phone with limited or no assistance Falls Risk Assessment:no frequent falls while walking; no fall in the past year; no fall since last visit; no dizziness/vertigo Home Safety:no unsafe maria eugenia hazzards; no unsafe stairs; no unsafe gas appliances; working smoke/CO detectors; wears protective head gear for biking/high velocity; use of seatbelts; practicing 'safer sex'; no vision or hearing loss while driving; no fire arms; has hand bars in the bathroom/shower; good lighting in the home here for rechk for her mwvdoing ok just lost her sister home bp are excellent Usama Coleman, DO [address] [facility], [place], [address], [facility] 03/02/2025 10:37:44 OBGyn Episode No OBEpisode recorded.
[2025-05-09 14:15] LABS: Free T4 (Free Thyroxine) 1.08 ng/dL (0.71-1.85); Thyroid Stimulating Hormone 2.12 uIU/mL (0.32-4.0)
== END 2025-05-09 10:33 | disposition home or self-care (01) ==
LOC: HO.MANLDS 10:32
PROVIDERS: Visit Provider Internal Medicine
DX: I10 Essential (primary) hypertension (principal); E78.00 Pure hypercholesterolemia, unspecified; E03.9 Hypothyroidism, unspecified
CPT/HCPCS: 36415; 84439; 84443

== ENCOUNTER 2025-07-12 09:45 | Outpatient (REF) | payer MEDICARE, SELFPAY ==
--- OUTSIDE RECORDS SUMMARY | 2025-07-12 11:05 | XMS_ITS | Patient Health Record ---
Author Organization [facility] Address [address] [place] [address] Care Team Providers Care Customer Marketing Intern Name Role Phone Dakota FLANAGAN, Brittanie Primary Care Provider U princess Tarvis Jr, Adrien Amador Reason For Referral No Information Medications Medication SIG (Take, Route, Fr equency, Duration) Notes Start Date End Date Status MoviPrep 100 GM as directed Orally a s directed for 1 dose 05/31/2013 Active Plan Of Treatment No Information Insurance Providers Payer Name Payer Address Payer Phone Subscriber Number Group Number Insured Name Patient Relationship to Insured Coverage Start Date Coverage End Date BLUE [facility] [address] [place], [place] [id number] [phone] [id number] LUIS ALBERTO KING Self - patient is the insured
--- OUTSIDE RECORDS SUMMARY | 2025-07-12 11:05 | XMS_ITS | Encounter Summary ---
Author Organization [facility] Address [facility] [address] [place] [address] Phone Care Team Providers Care Detective Investigator Name Role Phone Usama Harris Primary Care Provider [phone] Encounter Details Date Type Department Care Team (Late st Contact Info) Description 02/18/2022 Ancillary Orders [facility] UROLOGIC [facility] 1 [facility] [address] [place] [address] Tarun Valle MD 1 [facility] [address] [place] [address] [email or web address] Social History Tobacco Use Types Packs/Day Years Used Date Smoking Tobacco: Never Smokeless Tobacco: Never Alcohol Use Standard Drinks/Week Comments Yes 1 (1 standard drink = 0.6 oz pur e alcohol) rare Comments No Sex and Gender Information Value Date Recorded Sex Assigned at Female 11/19/2018 12:33 AM EST Legal Sex Female 10:11 PM EDT Gender Identity Female 11/19/2018 12:33 AM EST Sexual Orientation Not on file documented as of this encounter Plan of Treatment Upcoming Encounters Date Type Department Care Team (Late st Contact Info) Description 07/04/2026 11:15 AM EDT Procedure visit [facility] [address] [place] [address] Tarun Valle MD 1 [facility], [address] [place] [address] [email or web address] documented as of this encounter Visit Diagnoses Not on filedocumented in this encounter Care Teams Detective Investigator Relationship Specialty Start Date End Date Usama Harris DO [email or web address] PCP - General 09/06/17 documented as of this encounter Additional Source Comments The information contained in this document represents components of the legal health record. It is not the complete legal health record.[facility]
== END 2025-07-12 09:46 | disposition home or self-care (01) ==
LOC: HO.MAMMO 09:45
PROVIDERS: PCP Internal Medicine; Visit Provider Internal Medicine
DX: Z12.31 Encounter for screening mammogram for malignant neoplasm of breast (principal)
CPT/HCPCS: 77063; 77067

== ENCOUNTER → 2025-07-12 10:00 | Outpatient (BNV) | payer MEDICARE, SELFPAY | PROVIDERS: PCP Internal Medicine; Visit Provider Internal Medicine | DX: Z12.31 Encounter for screening mammogram for malignant neoplasm of breast (principal) | CPT/HCPCS: 77063; 77067 ==

== ENCOUNTER 2025-08-13 10:23 | Outpatient (REF) | payer MEDICARE, SELFPAY ==
--- OUTSIDE RECORDS SUMMARY | 2023-06-12 09:40 | XMS_ITS | Encounter Summary ---
Author Organization [facility] Address [address] [place] [address] Phone Care Team Providers Care Branch Coordinator Name Role Phone Usama Harris Primary Care Provider [phone] Encounter Details Date Type Department Care Team (Late st Contact Info) Description 06/12/2023 9:40 AM EDT Hospital Encounter [facility] [address] [place] [id number] Patty Lockett, RESEARCH PROFESSOR [address] [facility] [address] [place] [address] [email or web address] Social History Tobacco Use Types Packs/Day Years Used Date Smoking Tobacco: Never Smokeless Tobacco: Never Alcohol Use Standard Drinks/Week Comments Yes 1 (1 standard drink = 0.6 oz pur e alcohol) rare Education Answer Date Recorded Are you interested in more education? Not on felicia e 03/19/2023 Are you concerned about learning? Not on file 03/19/2023 No 03/19/2023 No 03/19/2023 Digital Access Answer Date Recorded No 04/17/2023 No 04/17/2023 Reliable internet access at home? Not on file 04/17/2023 Device with a working camera? Not on file Comments No Sex and Gender Information Value Date Recorded Sex Assigned at Female 11/19/2018 12:33 AM EST Legal Sex Female 10:11 PM EDT Gender Identity Female 11/19/2018 12:33 AM EST Sexual Orientation Not on file documented as of this encounter Plan of Treatment Upcoming Encounters Date Type Department Care Team (Late st Contact Info) Description 07/04/2026 11:15 AM EDT Procedure visit [facility] [address] [place] [address] Tarun Valle MD [address], [address] [place] [address] [email or web address] documented as of this encounter Procedures Procedure Name Priority Date/Time Associated Diagnosis Comments XR CHEST PA AND LATERAL 2 VIEWS Urgent/patient waiting 06/12/2023 9:44 AM EDT Acute cough documented in this encounter Results * XR CHEST PA AND LATERAL 2 VIEWS (06/12/2023 9:44 AM EDT) Anatomical Region Laterality Modality Chest Computed Radiogr aphy 06/12/2023 9:47 AM EDT Impressions 06/12/2023 9:50 AM EDT No acute cardiopulmonary process. Narrative 06/12/2023 9:50 AM EDT XR CHEST PA AND LATERAL 2 VIEWS COMPARISON: 04/11/2014 FINDINGS: Devices/Tubes/Lines: None. Lungs: No focal consolidation or pulmonary edema. Subsegmental atelectasis right lung base. Pleura: No pleural effusion or pneumothorax. Heart/Mediastinum: Normal heart and mediastinum with calcified aortic arch. Bones/Soft Tissues: No significant skeletal abnormality. Procedure Note Malia Farfan MD, KAYLA - 06/12/2023 XR CHEST PA AND LATERAL 2 VIEWS COMPARISON: 04/11/2014 FINDINGS: Devices/Tubes/Lines: None. Lungs: No focal consolidation or pulmonary edema. Subsegmental atelectasisright lung base. Pleura: No pleural effusion or pneumothorax. Heart/Mediastinum: Normal heart and mediastinum with calcified aorticarch. Bones/Soft Tissues: No significant skeletal abnormality. IMPRESSION: No acute cardiopulmonary process. us Patty B Whitehill RESEARCH PROFESSOR IMG XR CHEST Final Resul t documented in this encounter Visit Diagnoses Not on filedocumented in this encounter Care Teams Branch Coordinator Relationship Specialty Start Date End Date Usama Harris DO [email or web address] PCP - General 09/06/17 documented as of this encounter Additional Source Comments The information contained in this document represents components of the legal health record. It is not the complete legal health record.[facility]
--- OUTSIDE RECORDS SUMMARY | 2024-11-23 09:49 | XMS_ITS | Encounter Summary ---
Author Organization [facility] Address [address] [place] [address] [address] [place] [phone] Phone Care Team Providers Care Industrial Diamond Polisher Name Role Phone Usama Harris DO Primary Care Provider [phone] Encounter Details Date Type Department Care Team (Late st Contact Info) Description 11/23/2024 8:49 AM EST Hospital Encounter [facility] [address] [place] [id number] Sophie Abraham, TECHNICIAN TERMINAL AND REPEATER [address] [place] [address] [email or web address] Social History Tobacco Use Types Packs/Day Years [...] Description 07/04/2026 11:15 AM EDT Procedure visit [facility] [address] [place] [address] Tarun Valle MD [address], [address] [place] [address] [email or web address] documented as of this encounter Procedures Procedure Name Priority Date/Time Associated Diagnosis Comments XR CHEST PA AND LATERAL 2 VIEWS Urgent/patient waiting 11/23/2024 8:53 AM EST Acute cough documented in this encounter Results * XR CHEST PA AND LATERAL 2 VIEWS (11/23/2024 8:53 AM EST) Anatomical Region Laterality Modality Chest Computed Radiogr aphy 11/23/2024 9:28 AM EST Impressions 11/23/2024 9:29 AM EST Normal chest. Narrative 11/23/2024 9:29 AM EST XR CHEST PA AND LATERAL 2 VIEWS Referring clinician's provided indication for this examination in Epic: Cough COMPARISON: XR CHEST PA AND LATERAL 2 VIEWS ; CT ABDOMEN/PELVIS WITHOUT CONTRAST FINDINGS: Devices/Tubes/Lines: None. Lungs: Normal. The lungs are clear. No focal consolidation or pulmonary edema. Pleura: Normal. No pleural effusion or pneumothorax. Heart/Mediastinum: Unchanged in appearance. Bones/Soft Tissues: No displaced rib fractures. Procedure Note Brenna Barragan MD - 11/23/2024 XR CHEST PA AND LATERAL 2 VIEWS Referring clinician's provided indication for this examination in Epic:Cough COMPARISON: XR CHEST PA AND LATERAL 2 VIEWS ; CT ABDOMEN/PELVISWITHOUT CONTRAST FINDINGS: Devices/Tubes/Lines: None. Lungs: Normal. The lungs are clear. No focal consolidation or pulmonaryedema. Pleura: Normal. No pleural effusion or pneumothorax. Heart/Mediastinum: Unchanged in appearance. Bones/Soft Tissues: No displaced rib fractures. IMPRESSION: Normal chest. us Sophie Abraham TECHNICIAN TERMINAL AND REPEATER IMG XR CHEST Final R esult documented in this encounter Visit Diagnoses Not on filedocumented in this encounter Care Teams Industrial Diamond Polisher Relationship Specialty Start Date End Date Usama Harris DO [email or web address] PCP - General 09/06/17 documented as of this encounter Additional Source Comments The information contained in this document represents components of the legal health record. It is not the complete legal health record.[facility]
--- OUTSIDE RECORDS SUMMARY | 2025-08-13 12:42 | XMS_ITS | Encounter Summary ---
Author Organization [facility] Address [facility] [address] [place] [address] Phone Care Team Providers Care Accounts Payable Technician Name Role Phone Usama Harris DO Primary Care Provider [phone] Encounter Details Date Type Department Care Team (Late st Contact Info) Description 11/19/2018 Procedure Pass [address] [address] Social History Tobacco Use Types Packs/Day Years Used Date Smoking Tobacco: Never Smokeless Tobacco: Never Alcohol Use Standard Drinks/Week Comments Yes 0 (1 standard drink = 0.6 oz pur e alcohol) Comments No Sex and Gender Information Value Date Recorded Sex Assigned at Female 11/19/2018 12:33 AM EST Legal Sex Female 10:11 PM EDT Gender Identity Female 11/19/2018 12:33 AM EST Sexual Orientation Not on file documented as of this encounter Plan of Treatment Upcoming Encounters Date Type Department Care Team (Late st Contact Info) Description 07/04/2026 11:15 AM EDT [facility] 1 [facility] [address] [place] [address] Tarun Valle MD 1 [facility], [address] [place] [address] [email or web address] documented as of this encounter Visit Diagnoses Not on filedocumented in this encounter Care Teams Accounts Payable Technician Relationship Specialty Start Date End Date Usama Harris DO [email or web address] PCP - General 09/06/17 documented as of this encounter Additional Source Comments The information contained in this document represents components of the legal health record. It is not the complete legal health record.[facility]
--- OUTSIDE RECORDS SUMMARY | 2025-08-13 12:42 | XMS_ITS | Encounter Summary ---
Author Organization [facility] Address [facility] [address] [place] [address] Phone Care Team Providers Care Access Rn Name Role Phone Usama Harris DO Primary Care Provider [phone] Encounter Details Date Type Department Care Team (Late st Contact Info) Description 11/20/2018 Procedure Pass OR Admitting Dept - [facility] Department [address] [place] [id number] Social History Tobacco Use Types Packs/Day Years [...] Encounters Date Type Department Care Team (Late Contact Info) Description 07/04/2026 11:15 AM EDT [facility] 1 [facility] [address] [place] [address] Tarun Valle MD [address], [address] [place] [address] [email or web address] documented as of this encounter Visit Diagnoses Not on filedocumented in this encounter Care Teams Access Rn Relationship Specialty Start Date End Date Usama Harris DO [email or web address] PCP - General 09/06/17 documented as of this encounter Additional Source Comments The information contained in this document represents components of the legal health record. It is not the complete legal health record.[facility]
--- OUTSIDE RECORDS SUMMARY | 2025-08-13 12:42 | XMS_ITS | Encounter Summary ---
Author Organization [facility] Address [facility] [address] [place] [address] Phone Care Team Providers Care Whiting Machine Operator Name Role Phone Usama Harris DO Primary Care Provider [phone] Encounter Details Date Type Department Care Team (Late st Contact Info) Description 02/10/2022 Procedure Pass [facility] Scan - [address] [address] Social History Tobacco Use Types Packs/Day Years [...] Description 07/04/2026 11:15 AM EDT [facility] 1 [facility] [address] [place] [address] Tarun Valle MD 1 [facility], [address] [place] [address] [email or web address] documented as of this encounter Visit Diagnoses Not on filedocumented in this encounter Care Teams Whiting Machine Operator Relationship Specialty Start Date End Date Usama Harris DO [email or web address] PCP - General 09/06/17 documented as of this encounter Additional Source Comments The information contained in this document represents components of the legal health record. It is not the complete legal health record.[facility]
--- OUTSIDE RECORDS SUMMARY | 2025-08-13 12:42 | XMS_ITS | Encounter Summary ---
Author Organization [facility] Address [facility] [address] [place] [address] Phone Care Team Providers Care Flat Sorter Processor Name Role Phone Usama Harris DO Primary Care Provider [phone] Encounter Details Date Type Department Care Team (Late st Contact Info) Description 02/18/2022 Ancillary Orders [facility] UROLOGIC [facility] 1 [facility] [address] [place] [address] Tarun Valle MD 1 [facility] [address] [place] [address] [email or web address] Social History Tobacco Use Types Packs/Day Years [...] Description 07/04/2026 11:15 AM EDT Procedure visit [facility] [address] [place] [address] Tarun Valle MD 1 [facility], [address] [place] [address] [email or web address] documented as of this encounter Visit Diagnoses Not on filedocumented in this encounter Care Teams Flat Sorter Processor Relationship Specialty Start Date End Date Usama Harris DO [email or web address] PCP - General 09/06/17 documented as of this encounter Additional Source Comments The information contained in this document represents components of the legal health record. It is not the complete legal health record.[facility]
--- OUTSIDE RECORDS SUMMARY | 2025-08-13 12:42 | XMS_ITS | Encounter Summary ---
Author Organization [facility] Address [address] [place] [address] [address] [place] [address] Phone Care Team Providers Care Meal Cook Name Role Phone Usama Harris DO Primary Care Provider [phone] Encounter Details Date Type Department Care Team (Late st Contact Info) Description 08/17/2023 Transcribe Orders Virtual Department [address] [place] [address] Usama Harris DO [address] [facility] [address] [place] [address] [email or web address] Low back pain, unspecified back pain laterality, unspecified chronicity, unspecified whether sciatica present (Primary Dx) Social History Tobacco Use Types Packs/Day Years [...] Description 07/04/2026 11:15 AM EDT Procedure visit [facility] [address] [place] [address] Tarun Valle MD 1 [facility], [address] [place] [address] 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 Narrative 08/21/2023 11:35 PM EDT XR LUMBOSACRAL SPINE 2-3 VIEWS COMPARISON: None FINDINGS: ALIGNMENT: Levoconvex scoliosis centered at L3. Straightening of the lumbar lordosis. No spondylolisthesis. VERTEBRAE: Bones demineralized. Vertebral body heights preserved. DISCS: Disc height loss and endplate sclerosis and marginal osteophytes at all levels. FACETS: Facet arthropathy L4-S1. PARASPINAL SOFT TISSUES: Surgical clips in the right upper quadrant from prior cholecystectomy. Mild sacroiliac joint bony proliferative change. Procedure Note Lore Hector MD - 08/21/2023 XR LUMBOSACRAL SPINE 2-3 VIEWS COMPARISON: None FINDINGS: ALIGNMENT: Levoconvex scoliosis centered at L3. Straightening of thelumbar lordosis. No spondylolisthesis. VERTEBRAE: Bones demineralized. Vertebral body heights preserved. DISCS: Disc height loss and endplate sclerosis and marginal osteophytes atall levels. FACETS: Facet arthropathy L4-S1. PARASPINAL SOFT TISSUES: Surgical clips in the right upper quadrant fromprior cholecystectomy. Mild sacroiliac joint bony proliferative change. IMPRESSION: Moderate lumbar spine degenerative change with levoconvex scoliosiscentered at L3. Usama Harris DO IMG XR SPINE Final Result documented in this encounter Visit Diagnoses Diagnosis Low back pain, unspecified back pain laterality, unspecified chronicity, unspecified whether sciatica present- Primary Low back pain, unspecified back pain laterality, unspecified chronicity, unspecified whether sciatica present documented in this encounter Care Teams Meal Cook Relationship Specialty Start Date End Date Usama Harris DO [email or web address] PCP - General 09/06/17 documented as of this encounter Additional Source Comments The information contained in this document represents components of the legal health record. It is not the complete legal health record.[facility]
--- OUTSIDE RECORDS SUMMARY | 2025-08-13 12:42 | XMS_ITS | Clinical Summary ---
Author Organization [facility] Address [address] [place] [address] Phone Care Team Providers Care Supervisor Phosphorus Processing Name Role Phone Usama Harris DO Primary Care Provider [phone] Allergies Active Allergy Reactions Criticality Noted Date Comments Iodinated Contrast Media Rash Low 11/19/2018 Latex Swelling Medium 02/13/2022 Wasp Venom Swelling Medium 11/19/2018 Medications levothyroxine (SYNTHROID,LEVOTH ROID) 25 MCG tablet Take 25 mcg by mouth every morning. Active atorvastatin (LIPITOR) 40 MG tablet Take 40 mg by mouth daily. Active therapeutic multivitamin tablet Take 1 tablet by mouth daily. Active omega-3 fatty acids-fish oil 340-1,000 mg Cap Take 1 capsule by mouth 2 (two) times a day. Active butalbital-acetam inophen-caffeine (FIORICET, ESGIC) 50-325-40 mg per tablet Take 1 tablet by mouth every 4 (four) hours as needed for pain (specific location in comments). Active furosemide (LASIX) 20 MG tablet Take 20 mg by mouth daily. Active triamcinolone acetonide 0.5 % cream Apply topically 3 (three) times a day. 30 g 9 Active estradioL (ESTRACE) 0.01 % (0.1 mg/gram) vaginal cream USE PEA SIZED AMOUNT VAGINALLY TO URETHRA DAILY FOR UTI 2 Active LORazepam (ATIVAN) 0.5 MG tablet TAKE 1 TABLET BY MOUTH EVERY 12 HOURS NEEDED 2 Active sulfamethoxazole- trimethoprim (BACTRIM DS) 800-160 mg per tablet 2 Active aspirin 81 MG EC tablet Take 1 tablet (81 mg total) by mouth daily. 2 Active phenazopyridine (PYRIDIUM) 200 MG tablet Take 1 tablet (200 mg total) by mouth 3 (three) times a day as needed for pain (specific location in comments) (Bladder pain). 15 tablet 2 Active acetaminophen (TYLENOL) 325 mg tablet Take 2 tablets (650 mg total) by mouth every 6 (six) hours as needed for mild pain (You should take this every 6 hours for 2 days after surgery, then you can take as needed). 2 Active albuterol 90 mcg/actuation inhaler Inhale 2 puffs into the lungs every 6 (six) hours as needed for wheezing. 18 g 3 Active celecoxib (CELEBREX) 200 MG capsule Take 1 tablet by mouth daily. Active escitalopram oxalate (LEXAPRO) 5 MG tablet Take 1 tablet by mouth daily. 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 Roy--POD #1 Cipro/Flagyl stopped on 11/20. He remains afebrile with normal white blood cell count --Continue low-fat diet, PRN analgesics --Wound care per surgery --Trend LFTs Hypothyroidism 11/19/2018 Assessment & Plan (11/19/2018 7:34 PM EST): Continue levothyroxine Essential hypertension 01/19/2018 Carotid artery stenosis 01/19/2018 Overview (11/16/2024): Left Carotid US 2015 56-60% Impaired fasting glucose 01/19/2018 Osteopenia 01/19/2018 Syncope 01/19/2018 Overview (11/16/2024): [facility] Admission syncope 03/2014 Resolved Problems Problem Noted Date Diagnosed Date Resolved Date Abdominal pain 11/19/2018 11/22/2018 Encounters Date Type Department Care Team Description 07/05/2025 11:00 AM EDT Procedure visit [facility] [address] [place] [address] Tarun Valle MD Carcinoma of bladder (Primary Dx) 07/05/2025 [facility] [address] [place] [address] Tarun Valle MD Carcinoma of bladder 07/05/2025 Orders Only [facility] [address] [place] [address] Tarun Valle MD Carcinoma of bladder (Primary Dx) from Last 3 Months Immunizations Immunization Administration Dates Next Due INFLUENZA, SPLIT VIRUS, TRIVALENT PF 07/11/2020 Influenza Quadrivalent Adjuv anted Preservative Free IM 08/07/2021 Influenza Trivalent Adjuvant ed Preservative free IM 07/27/2018,07/07/2017,07/20/2016 Social History Tobacco Use Types Packs/Day Years Used Date Smoking Tobacco: Never Smokeless Tobacco: Never Tobacco Cessation:Counseling Given: Not Answered Alcohol Use Standard Drinks/Week Comments Yes 1 [...] AM EST Sexual Orientation Not on file Last Filed Vital Signs Vital Sign Reading Time Taken Comments Blood Pressure 182/90 11/23/2024 8:32 AM EST Pulse 80 11/23/2024 8:32 AM EST Temperature 36.7 C (98.1 F) 11/23/2024 8:32 AM EST Respiratory Rate 20 11/23/2024 8:32 AM EST Oxygen Saturation 98% 11/23/2024 8:32 AM EST Inhaled Oxygen Concentration - - Weight 79.4 kg (175 lb) 06/17/2023 8:35 AM EDT Height 162.6 cm (5' 4 ) 03/05/2022 7:14 AM EDT Body Mass Index 30.04 03/05/2022 7:14 AM EDT Plan of Treatment Upcoming Encounters Date Type Department Care Team (Late st Contact Info) Description 07/04/2026 11:15 AM EDT Procedure visit [facility] 1 [facility] [address] [place] [address] Tarun Valle MD 1 [facility], [address] [place] [address] [email or web address] Health Maintenance Due Date Last Done Comments DEPRESSION SCREENING 1952 OSTEOPOROSIS SCREENING INITIAL (ONE-TIME) 2007 PNEUMOCOCCAL VACCINES (50+ years) (2 of 2 - PCV) 07/27/2019 07/27/2018 TSH LEVEL 10/07/2021 10/07/2020 BLOOD PRESSURE 05/23/2025 11/23/2024 INFLUENZA VACCINE (#1) 2025 4, 07/28/2023, 07/23/2022, Additional history exists COVID-19 VACCINE ( season) 2025 09/24/2022, 09/01/2021, 01/16/2021, Additional history exists Adult Td,Tdap Booster 06/13/2031 06/13/2021 ZOSTER VACCINES Completed 07/07/2021, 05/06/2021 RSV VACCINE Completed 08/30/2023 HEPATITIS A VACCINES Aged Out No long er eligible based on patient's age to complete this topic HIB VACCINES Aged Out No longer eligi ble based on patient's age to complete this topic MENINGOCOCCAL VACCINES (ACWY) Aged Out No longer eligible based on patient's age to complete this topic MENINGOCOCCAL VACCINES (B) Aged Out N o longer eligible based on patient's age to complete this topic Medical Devices Not on file Procedures Procedure Name Priority Date/Time Associated Diagnosis Comments NON-FAMILY CENTERED SPECIALIST CYTOLOGY, URINE/URINARY TRACT Routine 07/05/2025 8:15 PM EDT Carcinoma of bladder NON-FAMILY CENTERED SPECIALIST CYTOLOGY, NON CSF, NON URINE Routine 07/05/2025 10:49 AM EDT TSH Routine 10/07/2020 9:38 AM EST Dizziness Hypertension, unspecified type Hypercholesteremia Hypothyroidism, unspecified type Tension headache from Last 3 Months or Most Recently Relevant to Health Maintenance Results * Urine cytology order (07/05/2025 8:15 PM EDT) Cytology Order Status Specimen received in Cytology Lab for processing. [facility] Urine 07/05/2025 8:15 PM EDT 07/05/2025 8:20 PM EDT us Tarun Valle MD URINE ORDERABLES Final Res ult [facility] [address] [place] [address] * Non-Supervisor Wall Mirror Department Cytology (07/05/2025 10:49 AM EDT) 07/05/2025 10:4 9 AM EDT 07/06/2025 10:49 AM EDT Narrative SEE NARRATIVE - 07/10/2025 9:25 [place] [address] Non Supervisor Wall Mirror Department Cytology Report Patient Name: LUIS ALBERTO SUMMERS : 1940 (Age: 85) Sex: F Institution: [facility] Location: Date of Collection: 07/05/2025 Date of Reported: 07/10/2025 09:25 Results to: Tarun Valle MD FINAL DIAGNOSIS A. VOIDED URINE: SPECIMEN ADEQUACY: Satisfactory for evaluation. INTERPRETATION: NEGATIVE FOR HIGH GRADE UROTHELIAL CARCINOMA DIAGNOSIS: - Urothelial and squamous cells. Electronically Signed Out By: Mary Sanchez [facility](AS[facility])MB By his/her signature above, the pathologist listed as making the Final Diagnosis certifies that he/she has personally reviewed the case and confirmed the diagnosis. All slides and stains were of sufficient quality to establish the diagnosis, unless otherwise stated. CLINICAL HISTORY malignant neoplasm of bladder SPECIMEN SOURCE A: VOIDED URINE GROSS DESCRIPTION A. VOIDED URINE: Received container labeled LUIS ALBERTO SUMMERS, with 7cc's of cloudy yellow fluid. One ThinPrep slide made. us Tarun Valle MD CYTOLOGY ORDERABLES Final Result Performing Organization Address City/[facility] Co de Phone Number SEE NARRATIVE * (ABNORMAL) TSH (10/07/2020 9:38 AM EST) TSH 4.46(H) 0.27 - 4.20 uIU/mL [facility] Blood 10/07/2020 9:38 AM EST 10/07/2020 9:43 AM EST Flynn Montano MD LAB BLOOD ORDERABLES Bebe l Result [address] [address] from Last 3 Months or Most Recently Relevant to Health Maintenance [place] [address] [place] [address] [address] [place] [address] [place] [address] [address] [place] [address] [place] [address] MEDICARE PPO BLUE REPLACEMENT Advance Directives For more information, please contact: [phone] (9AM - 5PM Natasha/[facility], Wednesday-Wednesday) Documents on File Type Date Recorded Patient Switchboard Wirer Expl anation Healthcare Proxy 11/23/2018 1:25 PM Durable Power of Agile Qa Tester 11/23/2018 1:25 PM * Full Code (Presumed) (Latest Code Status on File) Date Activated Date Inactivated Comments 11/19/2018 11:40 AM 11/22/2018 2:37 PM Healthcare Agents on File Name Relationship Healthcare Agent Relationshi p Communication Lilliam Summers-Chapis Daughter .Primary Heal th Care Agent (Proxy form on file) Natalya Summers Daughter Alternate Health care Agent (Proxy form on file) Care Teams Supervisor Phosphorus Processing Relationship Specialty Start Date End Date Usama Harris DO PCP - General 09/06/17 Additional Source Comments The information contained in this document represents components of the legal health record. It is not the complete legal health record.[facility]
--- OUTSIDE RECORDS SUMMARY | 2025-08-13 12:43 | XMS_ITS | Encounter Summary ---
Author Organization [facility] Address [facility] [address] [place] [address] Phone Care Team Providers Care Lumber Stacker Operator Name Role Phone Usama Harris DO Primary Care Provider Encounter Details Date Type Department Care Team (Late st Contact Info) Description 03/10/2022 Telephone [employer] [address] [employer] [address] [place] [address] Tessa Valle, FILOMENA [address] [place] [id number] [email or web address] Social History Tobacco Use Types Packs/Day Years [...] Description 07/04/2026 11:15 AM EDT Procedure visit [facility] [address] [place] [address] Tarun Valle MD 1 [facility], [address] [place] [address] [email or web address] documented as of this encounter Visit Diagnoses Not on filedocumented in this encounter Care Teams Lumber Stacker Operator Relationship Specialty Start Date End Date Usama Harris DO [email or web address] PCP - General 09/06/17 documented as of this encounter Additional Source Comments The information contained in this document represents components of the legal health record. It is not the complete legal health record.[facility]
--- OUTSIDE RECORDS SUMMARY | 2025-08-13 12:43 | XMS_ITS | Encounter Summary ---
Author Organization [facility] Address [address] [place] [address] [address] [place] [address] Phone Care Team Providers Care Supply Chain Consultant Name Role Phone Usama Harris DO Primary Care Provider [phone] Encounter Details Date Type Department Care Team (Latest Contact Info) Description 01/09/2022 Transcribe Orders Virtual Department [address] [place] [address] Vonnie Dawson PA 6 [facility] [place] [address] Gross hematuria (Primary Dx) Social History Tobacco Use Types [...] Description 07/04/2026 11:15 AM EDT [facility] [address] [facility] [address] [place] [address] Tarun Valle MD 1 [facility], [address] [place] [address] [email or web address] documented as of this encounter Results * US Bladder (01/20/2022 11:51 AM EST) Anatomical Region Laterality Modality Abdomen, Kidney Ultrasound 01/20/2022 12:5 0 PM EST Impressions 01/20/2022 12:54 PM EST Multifocal bladder wall lesions. Cystoscopy is recommended to exclude malignancy. POS - [id number] Narrative 01/20/2022 12:54 PM EST COMPARISON: 11/19/2018 CT FINDINGS: Prevoid bladder measured 247.9 cc and the post void bladder 31.6 cc consistent with an approximate 13% residual volume. There is a nonmobile hyperechoic lesion in the more caudal aspect of the left paramedian bladder measuring 1.8 x 1.2 x 1.3 cm and a nearby 1.1 x 0.8 x 1.4 cm paracolic lesion, worrisome for neoplasm. No mobile bladder calculus apparent. The bilateral ureteral jets were documented and limited evaluation the kidneys did not reveal hydronephrosis. Procedure Note Abrahan Medel MD - 01/20/2022 COMPARISON: 11/19/2018 CT FINDINGS: Prevoid bladder measured 247.9 cc and the post void bladder 31.6 ccconsistent with an approximate 13% residual volume. There is a nonmobilehyperechoic lesion in the more caudal aspect of the left paramedianbladder measuring 1.8 x 1.2 x 1.3 cm and a nearby 1.1 x 0.8 x 1.4 cmparacolic lesion, worrisome for neoplasm. No mobile bladder calculusapparent. The bilateral ureteral jets were documented and limited evaluation thekidneys did not reveal hydronephrosis. IMPRESSION: Multifocal bladder wall lesions. Cystoscopy is recommended to excludemalignancy. POS - [id number] Vonnie BEAN IM US RENAL Final Resul t documented in this encounter Visit Diagnoses Diagnosis Gross hematuria- Primary Gross hematuria documented in this encounter Care Teams Supply Chain Consultant Relationship Specialty Start Date End Date Usama Harris DO [email or web address] PCP - General 09/06/17 documented as of this encounter Additional Source Comments The information contained in this document represents components of the legal health record. It is not the complete legal health record.[facility]
--- OUTSIDE RECORDS SUMMARY | 2025-08-13 12:43 | XMS_ITS | Encounter Summary ---
Author Organization [facility] Address [address] [place] [address] [address] [place] [address] Phone Care Team Providers Care Unified Communications Engineer Name Role Phone Usama Harris DO Primary Care Provider [phone] Encounter Details Date Type Department Care Team (Late st Contact Info) Description 02/18/2022 Ancillary Orders [address] [address] Tarun Valle MD 1 [facility], [address] [place] [address] [email or web address] Malignant neoplasm of urinary bladder, unspecified site Social History Tobacco Use Types Packs/Day Years [...] Description 07/04/2026 11:15 AM EDT Procedure visit [facility] [address] [place], [place] [phone] Tarun Valle MD [address], [address] [place] [address] [email or web address] documented as of this encounter Results * FL Fluoroscopy Guidance - No Charge (03/05/2022 9:40 AM EDT) 03/06/2022 7:43 AM EDT Narrative [facility] - 03/06/2022 7:43 AM EDT Dose (mGy): 6.53 Fluoro time (min): 14.3sec [employer] Dose Report: CTDIvol: NaN - NaN mGy. DLP: 0 mGy-cm. Procedure Note Gore Seamer, Dictation - 03/06/2022 Dose (mGy): 6.53 Fluoro time (min): 14.3sec [employer] Dose Report: CTDIvol: NaN - NaN mGy. DLP: 0 mGy-cm. us Tarun Valle MD IMG FL EXAMS Final Resu lt [facility] [address] [place] [address] documented in this encounter Visit Diagnoses Diagnosis Malignant neoplasm of urinary bladder, unspecified site Malignant neoplasm of urinary bladder, unspecified site documented in this encounter Care Teams Unified Communications Engineer Relationship Specialty Start Date End Date Usama Harris DO PCP - General 09/06/17 documented as of this encounter Additional Source Comments The information contained in this document represents components of the legal health record. It is not the complete legal health record.[facility]
--- OUTSIDE RECORDS SUMMARY | 2025-08-13 12:43 | XMS_ITS | Encounter Summary ---
Author Organization [facility] Address [address] [place] [address] [address] [place] [address] Phone Care Team Providers Care Audiovisual Technician Name Role Phone Usama Harris DO Primary Care Provider [phone] Encounter Details Date Type Department Care Team (Late st Contact Info) Description 10/25/2018 Ancillary Orders Virtual Department [address] [place] [address] Callie London, MACHINE BURRER [address] [place] [address] [email or web address] Abdominal pain, unspecified abdominal location; Pain in joint of right shoulder Social History Tobacco Use Types Packs/Day Years Used Date Smoking Tobacco: Never Assessed Comments Unknown Sex and Gender Information Value Date Recorded Sex Assigned at Female 11/19/2018 12:33 AM EST Legal Sex Female 10:11 PM EDT Gender Identity Female 11/19/2018 12:33 AM EST Sexual Orientation Not on file documented as of this encounter Plan of Treatment Upcoming Encounters Date Type Department Care Team (Late st Contact Info) Description 07/04/2026 11:15 AM EDT [facility] 1 [facility] [address] [place] [address] Tarun Valle MD 1 [facility], [address] [place] [address] [email or web address] documented as of this encounter Results * XR SHOULDER 2 VIEWS (RIGHT) (10/26/2018 11:34 AM EST) Anatomical Region Laterality Modality Shoulder Right Radiographic Tamela ging 10/26/2018 12:1 8 PM EST Impressions 10/27/2018 11:49 PM EST Moderate degenerative changes at the acromioclavicular joint which likely contribute to impingement. Narrowing of the acromiohumeral interval is a finding seen with rotator cuff tearing or tendinopathy. POS - [id number] Edited by: Lexy Fields on 10/26/2018 1:03 PM Narrative 10/27/2018 11:49 PM EST HISTORY: Right shoulder pain. COMPARISON: None FINDINGS: Three views of the right shoulder are performed. No evidence of an acute fracture or malalignment. Moderate degenerative changes at the acromioclavicular joint with joint space narrowing and inferiorly directed spurring which may contribute to impingement. Narrowing of the acromiohumeral interval. Mild degenerative changes at the glenohumeral joint. No destructive bone lesion. No abnormal soft tissue calcifications. Procedure Note Mora Avila MD - 10/27/2018 HISTORY: Right shoulder pain. COMPARISON: None FINDINGS: Three views of the right shoulder are performed. No evidence of an acute fracture or malalignment. Moderate degenerativechanges at the acromioclavicular joint with joint space narrowing andinferiorly directed spurring which may contribute to impingement.Narrowing of the acromiohumeral interval. Mild degenerative changes atthe glenohumeral joint. No destructive bone lesion. No abnormal softtissue calcifications. IMPRESSION: Moderate degenerative changes at the acromioclavicular joint which likelycontribute to impingement. Narrowing of the acromiohumeral interval is afinding seen with rotator cuff tearing or tendinopathy. POS - [id number] Edited by: Lexy Fields on 10/26/2018 1:03 PM Callie London MACHINE BURRER IMG XR UPPER EXTREMITY Bebe l Result * US Abdomen Complete (10/26/2018 10:58 AM EST) Anatomical Region Laterality Modality Abdomen Ultrasound 10/26/2018 11:1 7 AM EST Impressions 10/26/2018 11:18 AM EST No findings to account for the patient's pain. POS [id number] Narrative 10/26/2018 11:18 AM EST COMPARISON: None. ABDOMEN ULTRASOUND FINDINGS: Liver: Atrophic caudate and left hepatic lobe. No acute finding. Gallbladder/Biliary Tree: Gallbladder is normal. The common bile duct measures 5 mm which is within normal limits. Pancreas: Imaged pancreas is normal. Pancreatic tail is obscured by bowel gas. Kidneys: Normal. Spleen: Normal. Proximal abdominal aorta/IVC: Unremarkable. Procedure Note Jayla Sosa MD - 10/27/2018 COMPARISON: None. ABDOMEN ULTRASOUND FINDINGS: Liver: Atrophic caudate and left hepatic lobe. No acute finding. Gallbladder/Biliary Tree: Gallbladder is normal. The common bile ductmeasures 5 mm which is within normal limits. Pancreas: Imaged pancreas is normal. Pancreatic tail is obscured bybowel gas. Kidneys: Normal. Spleen: Normal. Proximal abdominal aorta/IVC: Unremarkable. IMPRESSION: No findings to account for the patient's pain. POS [id number] Callie London MACHINE BURRER IMG US ABDOMEN Final Resul t documented in this encounter Visit Diagnoses Diagnosis Abdominal pain, unspecified abdominal location Pain in joint of right shoulder Pain in joint of right shoulder Abdominal pain, unspecified abdominal location documented in this encounter Care Teams Audiovisual Technician Relationship Specialty Start Date End Date Usama Harris DO [email or web address] PCP - General 09/06/17 documented as of this encounter Additional Source Comments The information contained in this document represents components of the legal health record. It is not the complete legal health record.[facility]
--- OUTSIDE RECORDS SUMMARY | 2025-08-13 12:43 | XMS_ITS | Encounter Summary ---
Author Organization [facility] Address [facility] [employer] [facility] [address] [place] [address] Phone Care Team Providers Care Child Monitor Name Role Phone Usama Harris DO Primary Care Provider [phone] Encounter Details Date Type Department Care Team (Late st Contact Info) Description 03/05/2022 Procedure Pass [facility] [address] [place] [address] Social History Tobacco Use Types Packs/Day Years [...] Description 07/04/2026 11:15 AM EDT [facility] 1 [facility] [address] [place] [address] Tarun Valle MD 1 [facility], [address] [place] [address] [email or web address] documented as of this encounter Visit Diagnoses Not on filedocumented in this encounter Care Teams Child Monitor Relationship Specialty Start Date End Date Usama Harris DO [email or web address] PCP - General 09/06/17 documented as of this encounter Additional Source Comments The information contained in this document represents components of the legal health record. It is not the complete legal health record.[facility]
--- OUTSIDE RECORDS SUMMARY | 2025-08-13 12:43 | XMS_ITS | Encounter Summary ---
Author Organization [facility] Address [facility] [address] [place] [address] Phone Care Team Providers Care Inkjet Operator Name Role Phone Usama Harris DO Primary Care Provider [phone] Encounter Details Date Type Department Care Team (Latest Contact Info) Description 12/06/2024 Transcribe Orders Virtual Department [address] [place] [address] Vonnie Dawson PA 6 [facility] [place] [address] Pneumonia due to infectious organism, unspecified laterality, unspecified part of lung (Primary Dx) Social History Tobacco Use Types [...] Description 07/04/2026 11:15 AM EDT Procedure visit [facility] [address] [place] [address] Tarun Valle MD [address], [address] [place] [address] [email or web address] documented as of this encounter Results * XR CHEST PA AND LATERAL 2 VIEWS (12/06/2024 3:27 PM EST) Anatomical Region Laterality Modality Chest Computed Radiogr aphy 12/06/2024 4:05 PM EST Impressions 12/06/2024 4:06 PM EST No focal consolidation or pulmonary edema demonstrated radiographically. Narrative 12/06/2024 4:06 PM EST XR CHEST PA AND LATERAL 2 VIEWS Referring clinician's provided indication for this examination in [facility]: Pneumonia COMPARISON: XR CHEST PA AND LATERAL 2 VIEWS ; XR CHEST PA AND LATERAL 2 VIEWS FINDINGS: Devices/Tubes/Lines: None. Lungs: The lungs are well-inflated. No focal consolidation or pulmonary edema. Pleura: No pleural effusion or pneumothorax. Heart/Mediastinum: There is similar radiographic appearance of the cardiomediastinal silhouette Bones/Soft Tissues: Mild multilevel degenerative changes of the spine. Procedure Note Belkis Cloud MD - 12/06/2024 XR CHEST PA AND LATERAL 2 VIEWS Referring clinician's provided indication for this examination in [facility]:Pneumonia COMPARISON: XR CHEST PA AND LATERAL 2 VIEWS ; XR CHEST PA ANDLATERAL 2 VIEWS FINDINGS: Devices/Tubes/Lines: None. Lungs: The lungs are well-inflated. No focal consolidation or pulmonaryedema. Pleura: No pleural effusion or pneumothorax. Heart/Mediastinum: There is similar radiographic appearance of thecardiomediastinal silhouette Bones/Soft Tissues: Mild multilevel degenerative changes of the spine. IMPRESSION: No focal consolidation or pulmonary edema demonstrated radiographically. Vonnie Dawson PA IMG XR CHEST Final Resul t documented in this encounter Visit Diagnoses Diagnosis Pneumonia due to infectious organism, unspecified laterality, unspecified part of lung- Primary Pneumonia due to infectious organism, unspecified laterality, unspecified part of lung documented in this encounter Care Teams Inkjet Operator Relationship Specialty Start Date End Date Usama Harris DO [email or web address] PCP - General 09/06/17 documented as of this encounter Additional Source Comments The information contained in this document represents components of the legal health record. It is not the complete legal health record.[facility]
--- OUTSIDE RECORDS SUMMARY | 2025-08-13 12:43 | XMS_ITS | Patient Health Record ---
Author Organization [facility] Address [address] [place] [id number] Care Team Providers Care Sales Support Coordinator Name Role Phone Dakota FLANAGAN, Brittanie Primary Care Provider U princess Travis Jr, Adrien Amador Reason For Referral No [...] Coverage Start Date Coverage End Date [facility] [id number] [place], [place] [id number] LUIS ALBERTO KING Self - patient is the insured
--- OUTSIDE RECORDS SUMMARY | 2025-08-13 12:43 | XMS_ITS | Encounter Summary ---
Author Organization [facility] Address [address] [place] [id number] Phone Care Team Providers Care Supervisor Looping Name Role Phone Usama Harris DO Primary Care Provider [phone] Encounter Details Date Type Department Care Team (Late st Contact Info) Description 02/10/2021 Ancillary Orders Virtual Department [address] [place] [id number] Elvia Read, GIS MANAGER [address] [place] [phone] [email or web address] Rotator cuff strain, left, sequela Social History Tobacco Use Types Packs/Day Years [...] Description 07/04/2026 11:15 AM EDT Procedure visit [facility] [address] [place] [address] Tarun Valle MD 1 [facility], [address] [place] [address] [email or web address] documented as of this encounter Results * XR SHOULDER 2 VIEWS (LEFT) (02/11/2021 3:35 PM EDT) Anatomical Region Laterality Modality Shoulder Left Computed Radiogr aphy 02/11/2021 6:17 PM EDT Impressions 02/11/2021 6:20 PM EDT Mild degenerative changes at the acromioclavicular joint. POS - [id number] Narrative 02/11/2021 6:20 PM EDT HISTORY: Left-sided pain and decreased range of motion. COMPARISON: None. VIEWS: 5 views. FINDINGS: Narrowing of the acromioclavicular joint and mild associated spurring. Glenohumeral joint is well-maintained. No fractures, subluxations or dislocations. No suspicious soft tissue calcifications. Procedure Note Abhishek Newton MD - 02/11/2021 HISTORY: Left-sided pain and decreased range of motion. COMPARISON: None. VIEWS: 5 views. FINDINGS: Narrowing of the acromioclavicular joint and mild associated spurring.Glenohumeral joint is well-maintained. No fractures, subluxations ordislocations. No suspicious soft tissue calcifications. IMPRESSION: Mild degenerative changes at the acromioclavicular joint. POS - [id number] us Elvia Read GIS MANAGER IMG XR UPPER EXTREMITY Final Res ult documented in this encounter Visit Diagnoses Diagnosis Rotator cuff strain, left, sequela Rotator cuff strain, left, sequela documented in this encounter Care Teams Supervisor Looping Relationship Specialty Start Date End Date Usama Harris DO [email or web address] PCP - General 09/06/17 documented as of this encounter Additional Source Comments The information contained in this document represents components of the legal health record. It is not the complete legal health record.[facility]
--- OUTSIDE RECORDS SUMMARY | 2025-08-13 12:43 | XMS_ITS | Encounter Summary ---
Author Organization [facility] Address [address] [place] [address] [address] [place] [address] Phone Care Team Providers Care Blind Stitch Machine Operator Name Role Phone Usama Harris DO Primary Care Provider [phone] Encounter Details Date Type Department Care Team (Latest Contact Info) Description 04/07/2022 Transcribe Orders Virtual Department [address] [place] [address] Vonnie Dawson PA 6 [facility] [place] [address] [place] [address] Right knee pain, unspecified chronicity (Primary Dx) Social History Tobacco Use Types [...] Description 07/04/2026 11:15 AM EDT Procedure visit [facility] [address] [facility] [address] [place] [address] Tarun Valle MD 1 [facility], [address] [place] [address] [email or web address] documented as of this encounter Results * US LOWER EXTREMITY NON-VASCULAR LIMITED (RIGHT) (04/09/2022 3:02 PM EDT) Anatomical Region Laterality Modality Hip Right, Thigh Right, Knee Right, Leg Right, Ankle Right, Foot Right Ultrasound 04/09/2022 4:50 PM EDT Narrative 04/09/2022 4:51 PM EDT TECHNIQUE: US LOWER EXTREMITY NON-VASCULAR LIMITED (RIGHT) Focused sonographic evaluation of the right popliteal fossa COMPARISON: None FINDINGS: Focused ultrasound is performed in the right popliteal fossa where a palpable abnormality was reported. No Seymour's cyst or focal sonographic abnormality is seen. The right popliteal vein in that region is patent. Procedure Note Martin Starks MD, KAYLA - 04/09/2022 TECHNIQUE: US LOWER EXTREMITY NON-VASCULAR LIMITED (RIGHT) Focused sonographic evaluation of the right popliteal fossa COMPARISON: None FINDINGS: Focused ultrasound is performed in the right popliteal fossa where apalpable abnormality was reported. No Seymour's cyst or focal sonographic abnormality is seen. The rightpopliteal vein in that region is patent. Vonnie BEAN IMG US EXTREMITY Final Resu lt * XR KNEE 4 OR MORE VIEWS (BILATERAL) (04/09/2022 2:48 PM EDT) Anatomical Region Laterality Modality Knee Bilateral, Knee Right, Knee Left Computed Radiography 04/09/2022 6:44 PM EDT Impressions 04/09/2022 6:48 PM EDT Moderate bilateral degenerative changes most pronounced in the right medial and left lateral compartments. No evidence of acute bony pathology. POS - [id number] Narrative 04/09/2022 6:48 PM EDT COMPARISON: None FINDINGS: Upright AP, tunnel, and lateral and sunrise views were obtained. There is moderate narrowing of the right medial and left lateral compartments. There are mild bilateral valgus deformities. There is minimal periarticular spurring along the medial compartment on the right. No fracture or dislocation. No erosive arthropathy. Minimal lower pole patellar periarticular spurring present bilaterally. No gross suprapatellar effusion or opaque loose joint body noted. Procedure Note Abrahan Medel MD - 04/09/2022 COMPARISON: None FINDINGS: Upright AP, tunnel, and lateral and sunrise views were obtained. There is moderate narrowing of the right medial and left lateralcompartments. There are mild bilateral valgus deformities. There isminimal periarticular spurring along the medial compartment on the right.No fracture or dislocation. No erosive arthropathy. Minimal lower polepatellar periarticular spurring present bilaterally. No grosssuprapatellar effusion or opaque loose joint body noted. IMPRESSION: Moderate bilateral degenerative changes most pronounced in the rightmedial and left lateral compartments. No evidence of acute bonypathology. POS - [id number] Vonnie BEAN IMG XR LOWER EXTREMITY Bebe l Result documented in this encounter Visit Diagnoses Diagnosis Right knee pain, unspecified chronicity- Primary Right knee pain, unspecified chronicity Right knee pain, unspecified chronicity documented in this encounter Care Teams Blind Stitch Machine Operator Relationship Specialty Start Date End Date Usama Harris DO [email or web address] PCP - General 09/06/17 documented as of this encounter Additional Source Comments The information contained in this document represents components of the legal health record. It is not the complete legal health record.[facility]
[2025-08-13 13:06] LABS: MANUAL DIFF FLAG NO
[2025-08-13 13:17] LABS: Hematocrit 38.7 % (37.0-47.0); Hemoglobin 13.1 g/dl (12.0-16.0); Imm Gran Abs Auto 0.01 X10*3/uL (0.00-0.03); Imm Gran Pct Auto 0.2 % (0.0-0.4); Lymphocytes Absolute Auto 1.4 X10*3/uL (1.2-4.9); Mean Corpuscular HGB Conc 33.9 g/dl (31.0-35.0); Mean Corpuscular Hemoglobin 31.6 pg (27.0-33.0); Mean Corpuscular Volume 93.3 fL (80.0-98.0); NRBC Abs Auto 0.000 X10*3/uL (0.0-0.012); NRBC Pct Auto 0.0 /100WBC (0.0-0.2); Platelet Count 208 X10*3/uL (160-400); Red Blood Count 4.15 X10*6/uL (4.20-5.50); White Blood Count 4.5 X10*3/uL (4.8-10.8)
[2025-08-13 14:18] LABS: Alanine Aminotransferase 25 U/L (0-31); Albumin Level 4.4 g/dL (3.5-5.0); Alkaline Phosphatase 77 U/L (39-117); Anion Gap 11 (12-20); Aspartate Amino Transferase 31 U/L (5-31); Blood Urea Nitrogen 12 mg/dL (9-16); Calcium 9.5 mg/dL (8.4-10.2); Carbon Dioxide 29 mmol/L (22-29); Chloride 105 mmol/L (96-108); Cholesterol 185 mg/dL (<200); Estimated Glomerular Filt Rate > 60; HDL Cholesterol 59 mg/dL (>40); Potassium 5.0 mmol/L (3.3-5.1); Sodium 140 mmol/L (135-145); Total Protein 6.7 g/dL (6.5-8.0); Triglycerides 128 mg/dL (<150)
== END 2025-08-13 10:24 | disposition home or self-care (01) ==
LOC: HO.MANLDS 10:23
PROVIDERS: Visit Provider Internal Medicine
DX: Z00.00 Encounter for general adult medical examination without abnormal findings (principal); Z13.6 Encounter for screening for cardiovascular disorders
CPT/HCPCS: 36415; 80053; 80061; 85025